=== PATIENT | male | born 1960 | race Caucasian/White ===

== ENCOUNTER 2016-12-28 19:11 | Inpatient (IN) | payer BC ==
[2016-12-28] MEDS ORDERED: HYDROmorphone 1 mg/ml ISec IVP STA (19:39)
--- NOTE | 2016-12-28 20:03 | ED PDOC ---
Arrival/HPI - General Chief Complaint: ENT Problem Time Seen by Provider: 12/28/16 19:22 Historian: Patient - History of Present Illness Narrative History of Present Illness (Text): 12/28/16 19:22 A 56 year old male who presents to the emergency department complaining of left lateral neck discomfort secondary to throat cancer. Patient states he was coughing up blood. He was recently admitted the [facility] [place] and treated for pneumonia. During his last admission the patient had a peg tube placed. Patient is currently on chronic pain medications. Patient last chemotherapy was 2 weeks ago and was originally diagnosed with cancer 2 years ago. Patient states he feels very weak but denies any history of known fever or chills. Patient denies any chest pain, shortness of breath or other complaints at this time. Time/Duration: Other Symptom Onset: Sudden Symptom Course: Unchanged Quality: Other Activities at Onset: Rest Context: Home Past Medical History - Provider Review Nursing Documentation Reviewed: Yes - Infectious Disease Hx of Infectious Diseases: None - Cardiac Hx Cardiac Disorders: No - Pulmonary Hx Respiratory Disorders: Yes Hx Pneumonia: Yes Other/Comment: hospitalized at [facility] [place] for pneumonia (december 2016) - Neurological Hx Neurological Disorder: No - HEENT Hx HEENT Disorder: No - Renal Hx Renal Disorder: No - Endocrine/Metabolic Hx Endocrine Disorders: No - Hematological/Oncological Hx Blood Disorders: Yes Hx Cancer: Yes (throat cancer) - Integumentary Hx Dermatological Disorder: No - Musculoskeletal/Rheumatological Hx Musculoskeletal Disorders: No - Gastrointestinal Hx Gastrointestinal Disorders: Yes Other/Comment: G tube - Genitourinary/Gynecological Hx Genitourinary Disorders: No - Psychiatric Hx Psychophysiologic Disorder: No Hx Substance Use: No - Surgical History Other/Comment: G tube placed. R chest port - Anesthesia Hx Anesthesia: Yes Hx Anesthesia Reactions: No Family/Social History - Physician Review Nursing Documentation Reviewed: Yes Family/Social History: Unknown Family HX Smoking Status: Former Smoker Hx Alcohol Use: No Hx Substance Use: No Allergies/Home Meds Allergies/Adverse Reactions: Allergies No Known Allergies Allergy (Verified 12/28/16 19:21) Home Medications: Home Meds Medication Instructions Recorded Confirmed oxyCODONE [oxyCODONE Immediate 20 mg PO PRN PRN 12/28/16 12/28/16 Release Tab] Review of Systems - Physician Review All systems were reviewed & negative as marked: Yes - Review of Systems Constitutional: Fatigue. absent: Fevers, Other (chills) Eyes: Normal ENT: Normal Respiratory: Other (Hemoptysis). absent: SOB Cardiovascular: absent: Chest Pain Gastrointestinal: absent: Abdominal Pain, Nausea, Vomiting Genitourinary Male: absent: Dysuria Musculoskeletal: Neck Pain. absent: Back Pain Skin: absent: Rash Neurological: absent: Headache, Dizziness Endocrine: Normal Hemo/Lymphatic: Normal Psychiatric: Normal Physical Exam Vital Signs Reviewed: Yes Vital Signs Temp Pulse Resp BP Pulse Ox 12/29/16 01:50 98.4 F 86 17 117/78 12/29/16 01:08 98.6 F 84 18 116/86 12/29/16 01:05 98.9 F 84 18 126/78 12/29/16 00:46 98.6 F 89 17 130/76 12/28/16 23:49 96 H 18 130/72 100 12/28/16 19:28 99 F 99 H 17 100/57 L 97 Temperature: Afebrile Blood Pressure: Hypotensive Pulse: Regular Respiratory Rate: Normal Appearance: Positive for: Well-Appearing, Non-Toxic, Comfortable Pain Distress: None Mental Status: Positive for: Alert and Oriented X 3 - Systems Exam Head: Present: Atraumatic, Normocephalic Pupils: Present: PERRL Extroacular Muscles: Present: EOMI Conjunctiva: Present: Normal Mouth: Present: Moist Mucous Membranes Pharnyx: Present: Other (soft tissue swelling to the lateral posterior pharyngeal wall). No: Strider Neck: Present: Normal Range of Motion, Other (significant swelling to the left lateral neck/throat region) Respiratory/Chest: Present: Clear to Auscultation, Good Air Exchange. No: Respiratory Distress, Accessory Muscle Use Cardiovascular: Present: Regular Rate and Rhythm, Normal S1, S2. No: Murmurs Abdomen: Present: Normal Bowel Sounds, Feeding Tubes. No: Tenderness, Distention, Peritoneal Signs Back: Present: Normal Inspection Upper Extremity: Present: Normal Inspection. No: Cyanosis, Edema Lower Extremity: Present: Normal Inspection. No: Edema Neurological: Present: GCS=15, CN II-XII Intact, Speech Normal, Other (no neurological deficits) Skin: Present: Warm, Dry, Normal Color. No: Rashes Psychiatric: Present: Alert, Oriented x 3, Normal Insight, Normal Concentration Medical Decision Making ED Course and Treatment: 12/28/16 19:22 Impression: A 56 year old male with left lateral neck swelling. Differential Diagnosis include but are not limited to: metastasis of throat cancer Plan: -- EKG -- Chest X-ray -- Labs -- Urinalysis -- Dilaudid, Zofran and IV Fluids -- Reassess and disposition Progress Notes: EKG shows NSR at 88 BPM with T wave changes inferiorly, with no prior for comparison. Interpreted by me. 12/28/16 20:42 Chest X-ray Impression: As read by me, no acute process. 12/28/16 23:23 Reviewed radiology, CT Neck shows: Vascular destructive mass representing (likely) patient's known head and neck cancer measuring approximately 9.2 cm in greatest dimension. Thecal sac and intracranial extension along with significant bony destruction are identified, and detailed above. Mass effect on the nasopharyngeal and oropharyngeal airway. CT Chest shows: No discrete metastatic disease is detected within the chest. Moderate interstitial thickening with trace left basilar consolidation. 12/28/16 23:[address] Barrera, covering for Dr. Galindo, who is aware and agrees with plan. Pt will be admitted to telemetry for neck mass and anemia. Requests Dr. Santa and Dr. Gaines on consult. 12/28/16 23:38 ENT paged. Case discussed with medical editor claim professional, who is aware and agrees with plan. 12/28/16 23:[address] Gutierrez ENT.Results of pts. CT scan discussed in full.Pt. w/o any signs of respiratory difficulty. States they will see pt on consult. - Lab Interpretations Lab Results: 12/28/16 20:00 12/28/16 20:00 Lab Results 12/28/16 21:40: Blood Type Confirm O POSITIVE 12/28/16 21:00: Blood Type O POSITIVE, Antibody Screen Negative, Crossmatch See Detail, BBK History Checked No verified bt 12/28/16 20:36: Urine Color Yellow, Urine Appearance Clear, Urine pH 8.0, Ur Specific Benedict 1.015, Urine Protein Negative, Urine Glucose (UA) Negative, Urine Ketones Negative, Urine Blood Negative, Urine Nitrate Negative, Urine Bilirubin Negative, Urine Urobilinogen 4.0 H, Ur Leukocyte Esterase Negative 12/28/16 20:00: Iron 15 L, TIBC 171 L, % Saturation 9 L 12/28/16 20:00: Retic Count 1.58 H 12/28/16 20:00: Serum Osmolality 266 L 12/28/16 20:00: Sodium 125 L, Chloride 84 L, Potassium 4.2, Carbon Dioxide 36 H , Anion Gap 9 L, BUN 16, Creatinine 0.7, Est GFR ( Amer) > 60, Est GFR ( Non-Af Amer) > 60, Random Glucose 86, Calcium 8.9, Phosphorus 3.4, Magnesium 1.6 L, Total Bilirubin 0.3, AST 41, ALT 34, Alkaline Phosphatase 65, Total Protein 6.8, Albumin 3.2, Globulin 3.6, Albumin/Globulin Ratio 0.9 L 12/28/16 20:00: pO2 34, VBG pH 7.38, VBG pCO2 66.0 H*, VBG HCO3 39.0 H, VBG Total CO2 41.0 H, VBG O2 Sat (Calc) 68.5 H, VBG Base Excess 11.1 H, VBG Potassium 4.3, Sodium 126.0 L, Chloride 89.0 L, Glucose 91, Lactate 0.9, FiO2 21.0, Venous Blood Potassium 4.3 12/28/16 20:00: PT 12.0 H, INR 1.11 H, APTT 26.7 12/28/16 20:00: WBC 7.2, RBC 2.15 L, Hgb 6.8 L*, Hct 20.2 L*, MCV 94.0, MCH 31.6 , MCHC 33.7, RDW 14.2, Plt Count 422, MPV 8.4, Gran % 75.5 H, Lymph % (Auto) 14.6 L, [place] % (Auto) 9.5 H, Eos % (Auto) 0.1 L, Baso % (Auto) 0.3, Gran # 5.42 , Lymph # 1.1 L, [place] # 0.7 H, Eos # 0.0, Baso # 0.02 I have reviewed the lab results: Yes - RAD Interpretation Narrative RAD Interpretations (Text): CT Neck shows: A vascular destructive mass is identified within the head and neck. Approximate measurements are 9.2 x 7.8 x 8.1 cm (anterior to posterior x medial to lateral x cranial to caudal dimension). This mass demonstrates bony destruction of the sphenoid sinus and clivus extending to and including the posterior left lateral skull base. Extension into the thecal sac is also detected, at the level of C1- C3. This mass also erodes the left maxilla with lateral distention and attenuation of the internal carotid artery as well as the external carotid artery and its branches within the left lateral neck. Intracranial extension is suspected within the posterior fossa, to the left of midline. The globes are intact and symmetric. Significant narrowing of the nasopharyngeal, oropharyngeal and laryngeal airways. Extensive cervical and supraclavicular lymph nodes are identified. Poor delineation secondary to the lack of subcutaneous fat. IMPRESSION: Vascular destructive mass representing (likely) patient's known head and neck cancer measuring approximately 9.2 cm in greatest dimension. Thecal sac and intracranial extension along with significant bony destruction are identified, and detailed above. Mass effect on the nasopharyngeal and oropharyngeal airway. CT Chest shows: Lungs: Moderate interstitial thickening, with trace left basilar consolidation. Pleural space: No pneumothorax. No significant effusion. Heart: No cardiomegaly. No significant pericardial effusion. Bones/joints: No acute fracture. No dislocation. Soft tissues: Absence of subcutaneous fat. Vasculature: Calcified atherosclerotic disease. Lymph nodes: Limited detection of mediastinal lymph nodes secondary to the lack of fat within the soft tissues. IMPRESSION: No discrete metastatic disease is detected within the chest. Moderate interstitial thickening with trace left basilar consolidation. Radiology Orders: 12/28/16 19:37 CHEST PORTABLE [RAD] Stat 12/28/16 20:47 NECK,CHEST WITH CONTRAST [CT] Stat Tube Filler: Radiologist - EKG Interpretation Interpreted by ED Physician: Yes Type: 12 lead EKG - Medication Orders Current Medication Orders: Acetaminophen (Tylenol 325mg Tab) 650 mg PO Q4H PRN PRN Reason: Fever >100.4 F Sodium Chloride (Sodium Chloride 0.9%) 1,000 mls @ 100 mls/hr IV .Q10H JOSELYN Stop: 12/29/16 20:29 Last Admin: 12/29/16 01:09 Dose: 100 mls/hr Morphine Sulfate (Morphine) 2 mg IVP Q4H PRN PRN Reason: Pain, severe (8-10) Pantoprazole Sodium (Protonix Inj) 40 mg IVP DAILY JOSELYN Discontinued Medications Hydromorphone HCl (Dilaudid) 1 mg IVP STAT STA Stop: 12/28/16 19:40 Last Admin: 12/28/16 20:13 Dose: 1 mg Sodium Chloride 1,500 ml/ IV (SUPPLIES) 1,500 mls @ 2,993.7 mls/hr IV ONCE ONE PRN Reason: 60 ML/KG/HR Stop: 12/28/16 19:38 Last Admin: 12/28/16 20:13 Dose: 2,993.7 mls/hr Magnesium Sulfate 2 gm/ Sodium (Chloride) 104 mls @ 102 mls/hr IVPB ONCE ONE Stop: 12/29/16 00:51 Last Admin: 12/29/16 00:12 Dose: 102 mls/hr Iohexol (Omnipaque 350 100 Ml) Confirm Administered Dose 350 mg .ROUTE .STK-MED ONE Stop: 12/28/16 21:13 Ondansetron HCl (Zofran Inj) 4 mg IVP ONCE ONE Stop: 12/28/16 19:40 Last Admin: 12/28/16 20:13 Dose: 4 mg - Scribe Statement The provider has reviewed the documentation as recorded by the Rosemary Daniel Provider Scribe Attestation: All medical record entries made by the Rosemary were at my direction and personally dictated by me. I have reviewed the chart and agree that the record accurately reflects my personal performance of the history, physical exam, medical decision making, and the department course for this patient. I have also personally directed, reviewed, and agree with the discharge instructions and disposition. Disposition/Present on Arrival - Present on Arrival Any Indicators Present on Arrival: No History of DVT/PE: No History of Uncontrolled Diabetes: No Urinary Catheter: No History of Decub. Ulcer: No History Surgical Site Infection Following: None - Disposition Have Diagnosis and Disposition been Completed?: Yes Diagnosis: Neck malignant neoplasm, Anemia Disposition: HOSPITALIZED Disposition Time: 00:04 Patient Plan: Admission Patient Problems: Current Active Problems Problem Status Onset Anemia Acute Neck malignant neoplasm Acute Condition: STABLE
[2016-12-28 20:10] LABS: BASO # 0.02 K/mm3 (0.0-2.0); BASO % 0.3 % (0.0-3.0); EOS % 0.1 % (1.5-5.0); GRAN # 5.42 (1.4-6.5); GRAN % 75.5 % (50.0-68.0); LYMPH # 1.1 (1.2-3.4); LYMPH % 14.6 % (22.0-35.0); MEAN CORPUSCULAR HEMOGLOBIN 31.6 pg (25.0-35.0); MEAN CORPUSCULAR HGB CONC 33.7 g/dl (31.0-37.0); MEAN PLATELET VOLUME 8.4 fl (7.0-11.0); MONO # 0.7 (0.1-0.6); MONO % 9.5 % (1.0-6.0); PLATELET COUNT 422 10^3/uL (120.0-450.0); RBC 2.15 10^6/uL (3.5-6.1); RED CELL DISTRIBUTION WIDTH 14.2 % (11.5-14.5); WHITE BLOOD COUNT 7.2 10^3/ul (4.5-11.0)
[2016-12-28 20:14] LABS: VENOUS BLOOD GAS BASE EXCESS 11.1 mmol/L (0.0-2.0); VENOUS BLOOD GAS PO2 34 mm/Hg (30-55); VENOUS BLOOD PH 7.38 (7.32-7.43)
[2016-12-28 20:16] LABS: HEMOGLOBIN 6.8 gm/dL (14.0-18.0)
[2016-12-28 20:21] LABS: ALB/GLOB RATIO 0.9 (1.1-1.8); ALBUMIN 3.2 g/dL (3.0-4.8); ALT/SGPT 34 U/L (7-56); AST/SGOT 41 U/L (15-59); BLOOD UREA NITROGEN 16 mg/dL (7-21); CALCIUM 8.9 mg/dL (8.4-10.5); GFR AFRICAN-AMERICAN > 60; GFR NON-AFRICAN AMERICAN > 60; MAGNESIUM 1.6 mg/dL (1.7-2.2)
[2016-12-28 20:22] LABS: INR 1.11 (0.93-1.08); PARTIAL THROMBOPLASTIN TIME 26.7 Seconds (23.7-30.8)
[2016-12-28 20:52] LABS: URINE BILIRUBIN NEGATIVE (NEGATIVE); URINE BLOOD NEGATIVE (NEGATIVE); URINE GLUCOSE (UA) NEGATIVE (NEGATIVE); URINE LEUKOCYTE ESTERASE NEGATIVE Leu/uL (NEGATIVE); URINE NITRATE NEGATIVE (NEGATIVE); URINE PROTEIN NEGATIVE mg/dL (<30 mg/dL)
[2016-12-28 21:03] LABS: URINE APPEARANCE CLEAR (CLEAR); URINE COLOR YELLOW (YELLOW)
[2016-12-28] MEDS ORDERED: Iohexol 350 MG/100 ML VIAL ONE (21:12)
--- NOTE | 2016-12-28 23:17 | CT ---
EXAM: CT Neck With Intravenous Contrast CLINICAL HISTORY: 56 years old, male; Pain; Chest pain; Type not specified; Neck pain and painful swallowing and throat pain; Additional info: Left neck/throat pain/hx. Throat cancer TECHNIQUE: Axial computed tomography images of the neck with intravenous contrast. This CT exam was performed using one or more of the following dose reduction techniques: automated exposure control, adjustment of the mA and/or kV according to patient size, and/or use of iterative reconstruction technique. Coronal and sagittal reformatted images were created and reviewed. CONTRAST: 100 mL of omni 350 administered intravenously. COMPARISON: No relevant prior studies available. Reference is made to a report from a PET CT performed 02/25/2015 FINDINGS: A vascular destructive mass is identified within the head and neck. Approximate measurements are 9.2 x 7.8 x 8.1 cm (anterior to posterior x medial to lateral x cranial to caudal dimension). This mass demonstrates bony destruction of the sphenoid sinus and clivus extending to and including the posterior left lateral skull base. Extension into the thecal sac is also detected, at the level of C1-C3. This mass also erodes the left maxilla with lateral distention and attenuation of the internal carotid artery as well as the external carotid artery and its branches within the left lateral neck. Intracranial extension is suspected within the posterior fossa, to the left of midline. The globes are intact and symmetric. Significant narrowing of the nasopharyngeal, oropharyngeal and laryngeal airways. Extensive cervical and supraclavicular lymph nodes are identified. Poor delineation secondary to the lack of subcutaneous fat. IMPRESSION: Vascular destructive mass representing (likely) patient's known head and neck cancer measuring approximately 9.2 cm in greatest dimension. Thecal sac and intracranial extension along with significant bony destruction are identified, and detailed above. Mass effect on the nasopharyngeal and oropharyngeal airway. EXAM: CT Chest With Intravenous Contrast CLINICAL HISTORY: 56 years old, male; Pain; Chest pain; Type not specified; Neck pain and painful swallowing and throat pain; Additional info: Left neck/throat pain/hx. Throat cancer TECHNIQUE: Axial computed tomography images of the chest with intravenous contrast. This CT exam was performed using one or more of the following dose reduction techniques: automated exposure control, adjustment of the mA and/or kV according to patient size, and/or use of iterative reconstruction technique. Coronal and sagittal reformatted images were created and reviewed. CONTRAST: 100 mL of omni 350 administered intravenously. COMPARISON: DX - CHEST PORTABLE 12/28/2016 8:02:26 PM FINDINGS: Lungs: Moderate interstitial thickening, with trace left basilar consolidation. Pleural space: No pneumothorax. No significant effusion. Heart: No cardiomegaly. No significant pericardial effusion. Bones/joints: No acute fracture. No dislocation. Soft tissues: Absence of subcutaneous fat. Vasculature: Calcified atherosclerotic disease. Lymph nodes: Limited detection of mediastinal lymph nodes secondary to the lack of fat within the soft tissues. IMPRESSION: No discrete metastatic disease is detected within the chest. Moderate interstitial thickening with trace left basilar consolidation.
[2016-12-28] MEDS ORDERED: Magnesium Sulfate 2 GM in Sodium Chloride 0.9% 100 ML IVPB ONE (23:50)
--- NOTE | 2016-12-29 00:38 | CP.PCM.HP ---
History of Present Illness - History of Present Illness History of Present Illness: HPI: Patient is a 56yo male with past medical history of oropharyngeal Ca that presents c/o neck pain. Patient is a poor historian however he was able to communicate that he has a known history of throat cancer for which he was being treated at [facility] [place]. He reported that he was recently discharged from [facility] [place] for pneumonia and since discharge has been experiencing left lateral neck pain associated with hemoptysis. He stated that he was diagnosed with cancer 2 years prior and had been undergoing chemotherapy (last session 2 weeks ago). Denied chest pain, palpitations, SOB, abdominal pain, nausea, vomiting, fever, chills. 12 point ROS as per HPI above, otherwise negative PMHx: Oropharyngeal ca diagnosed 2 yrs prior PSHx: PEG tube placement at [facility] [place] (1 week prior); chemoport Allergies: NKDA Medications: Unable to provide Family Hx: denies family history of cancer Social Hx: Reports former tobacco and alcohol use however unable to quantify amount or how long ago; denies illicit drugs Present on Admission - Present on Admission Any Indicators Present on Admission: No Past Patient History - Infectious Disease Hx of Infectious Diseases: None - Past Social History Smoking Status: Former Smoker - CARDIAC Hx Cardiac Disorders: No - PULMONARY Hx Respiratory Disorders: Yes Hx Pneumonia: Yes Other/Comment: hospitalized at [facility] [place] for pneumonia (december 2016) - NEUROLOGICAL Hx Neurological Disorder: No - HEENT Hx HEENT Problems: No - RENAL Hx Chronic Kidney Disease: No - ENDOCRINE/METABOLIC Hx Endocrine Disorders: No - HEMATOLOGICAL/ONCOLOGICAL Hx Blood Disorders: Yes Hx Cancer: Yes (throat cancer) - INTEGUMENTARY Hx Dermatological Problems: No - MUSCULOSKELETAL/RHEUMATOLOGICAL Hx Musculoskeletal Disorders: No - GASTROINTESTINAL Hx Gastrointestinal Disorders: Yes Other/Comment: G tube - GENITOURINARY/GYNECOLOGICAL Hx Genitourinary Disorders: No - PSYCHIATRIC Hx Psychophysiologic Disorder: No Hx Substance Use: No - SURGICAL HISTORY Other/Comment: G tube placed. R chest port - ANESTHESIA Hx Anesthesia: Yes Hx Anesthesia Reactions: No Meds Allergies/Adverse Reactions: Allergies Allergy/AdvReac Type Severity Reaction Status Date / Time No Known Allergies Allergy Verified 12/28/16 19:21 Physical Exam - Constitutional Appears: Cachectic, Chronically Ill - Head Exam Head Exam: ATRAUMATIC, NORMOCEPHALIC - Eye Exam Eye Exam: EOMI, PERRL - Respiratory Exam Respiratory Exam: Clear to Auscultation Bilateral. absent: Rales, Rhonchi, Wheezes - Cardiovascular Exam Cardiovascular Exam: RRR, +S1, +S2. absent: Gallop, Rubs - GI/Abdominal Exam GI & Abdominal Exam: Soft. absent: Distended, Firm, Guarding, Tenderness Additional comments: peg tube in place; site appears clean/dry/intact - Extremities Exam Extremities exam: Negative for: calf tenderness, pedal edema, tenderness - Neurological Exam Neurological exam: Alert, Oriented x3 - Psychiatric Exam Psychiatric exam: Normal Affect, Normal Mood - Skin Skin Exam: Dry, Intact, Normal Color, Warm Results - Vital Signs Recent Vital Signs: Last Vital Signs Temp 99 F 12/28/16 19:28 Pulse 96 H 12/28/16 23:49 Resp 18 12/28/16 23:49 BP 130/72 12/28/16 23:49 Pulse Ox 100 12/28/16 23:49 - Labs Result Diagrams: 12/28/16 20:00 12/28/16 20:00 Labs: Laboratory Results - last 24 hr 12/28/16 12/28/16 12/28/16 20:00 20:00 20:00 WBC 7.2 RBC 2.15 L Hgb 6.8 L* Hct 20.2 L* MCV 94.0 MCH 31.6 MCHC 33.7 RDW 14.2 Plt Count 422 MPV 8.4 Gran % 75.5 H Lymph % (Auto) 14.6 L Hall % (Auto) 9.5 H Eos % (Auto) 0.1 L Baso % (Auto) 0.3 Gran # 5.42 Lymph # 1.1 L Hall # 0.7 H Eos # 0.0 Baso # 0.02 PT 12.0 H INR 1.11 H APTT 26.7 pO2 34 VBG pH 7.38 VBG pCO2 66.0 H* VBG HCO3 39.0 H VBG Total CO2 41.0 H VBG O2 Sat (Calc) 68.5 H VBG Base Excess 11.1 H VBG Potassium 4.3 Sodium 126.0 L Chloride 89.0 L Glucose 91 Lactate 0.9 FiO2 21.0 Potassium Carbon Dioxide Anion Gap BUN Creatinine Est GFR ( Amer) Est GFR (Non-Af Amer) Random Glucose Calcium Phosphorus Magnesium Total Bilirubin AST ALT Alkaline Phosphatase Total Protein Albumin Globulin Albumin/Globulin Ratio Venous Blood Potassium 4.3 Urine Color Urine Appearance Urine pH Ur Specific [place] Urine Protein Urine Glucose (UA) Urine Ketones Urine Blood Urine Nitrate Urine Bilirubin Urine Urobilinogen Ur Leukocyte Esterase Blood Type Blood Type Confirm Antibody Screen Crossmatch BBK History Checked 12/28/16 12/28/16 12/28/16 20:00 20:36 21:00 WBC RBC Hgb Hct MCV MCH MCHC RDW Plt Count MPV Gran % Lymph % (Auto) Hall % (Auto) Eos % (Auto) Baso % (Auto) Gran # Lymph # Hall # Eos # Baso # PT INR APTT pO2 VBG pH VBG pCO2 VBG HCO3 VBG Total CO2 VBG O2 Sat (Calc) VBG Base Excess VBG Potassium Sodium 125 L Chloride 84 L Glucose Lactate FiO2 Potassium 4.2 Carbon Dioxide 36 H Anion Gap 9 L BUN 16 Creatinine 0.7 Est GFR ( Amer) > 60 Est GFR (Non-Af Amer) > 60 Random Glucose 86 Calcium 8.9 Phosphorus 3.4 Magnesium 1.6 L Total Bilirubin 0.3 AST 41 ALT 34 Alkaline Phosphatase 65 Total Protein 6.8 Albumin 3.2 Globulin 3.6 Albumin/Globulin Ratio 0.9 L Venous Blood Potassium Urine Color Yellow Urine Appearance Clear Urine pH 8.0 Ur Specific [place] 1.015 Urine Protein Negative Urine Glucose (UA) Negative Urine Ketones Negative Urine Blood Negative Urine Nitrate Negative Urine Bilirubin Negative Urine Urobilinogen 4.0 H Ur Leukocyte Esterase Negative Blood Type O POSITIVE Blood Type Confirm Antibody Screen Negative Crossmatch See Detail BBK History Checked No verified bt 12/28/16 21:40 WBC RBC Hgb Hct MCV MCH MCHC RDW Plt Count MPV Gran % Lymph % (Auto) Hall % (Auto) Eos % (Auto) Baso % (Auto) Gran # Lymph # Hall # Eos # Baso # PT INR APTT pO2 VBG pH VBG pCO2 VBG HCO3 VBG Total CO2 VBG O2 Sat (Calc) VBG Base Excess VBG Potassium Sodium Chloride Glucose Lactate FiO2 Potassium Carbon Dioxide Anion Gap BUN Creatinine Est GFR ( Amer) Est GFR (Non-Af Amer) Random Glucose Calcium Phosphorus Magnesium Total Bilirubin AST ALT Alkaline Phosphatase Total Protein Albumin Globulin Albumin/Globulin Ratio Venous Blood Potassium Urine Color Urine Appearance Urine pH Ur Specific [place] Urine Protein Urine Glucose (UA) Urine Ketones Urine Blood Urine Nitrate Urine Bilirubin Urine Urobilinogen Ur Leukocyte Esterase Blood Type Blood Type Confirm O POSITIVE Antibody Screen Crossmatch BBK History Checked Assessment & Plan - Assessment and Plan (Free Text) Plan: 56yo male with history of oropharyngeal ca presents c/o left lateral neck pain associated with hemoptysis 1. Throat Ca -CT Neck/Chest reviewed; revealed vascular destructive mass representing patients known head and neck cancer measuring approximately 9.2cm in greatest dimension. Thecal sac and intracranial extension along with significant bony destruction are identified; mass effect on the nasopharyngeal and oropharyngeal airway; no discrete metastatic disease is detected within the chest; see full report -PET scan from 02/19/15 reviewed; revealed FDG avid lesion extending from the posterior tongue into the left vallecula, likely represented primary malignancy ; solitary rounded FDG-avid lesion along the left posterior lateral oropharynx likely representing an enlarged retropharyngeal lymph node; no evidence of metastatic disease in the chest, abdomen or pelvis; see full report -EKG reviewed; NSR, normal axis, T wave inversions in inferior leads; no prior for comparison -CXR reviewed; no apparent active disease, however official read pending -ENT consulted - Dr. Gaines -Heme/Onc consulted - Dr. Santa 2. Acute anemia -Hgb 6.8 on presentation, consent obtained for blood transfusion -Ordered 2u pRBC to be administered -Anemia workup: Iron, Ferritin, TIBC, reticulocyte count, B12, folate -Heme/onc consulted - Dr. Santa 3. Hypomagnesemia -Monitor and replete electrolytes as indicated 4. GI/DVT prophylaxis -protonix/SCD's Case discussed with attending, Dr. Barrera - Date & Time Date: 12/29/16 Time: 00:40
[2016-12-29] MEDS: Sodium Chloride 0.9% 1,000 ML IV SCH ×2 (01:09→19:09)
[2016-12-29 01:46] LABS: % IRON SATURATION 9 % (20-55); IRON 15 ug/dL (45-180); TOTAL IRON BINDING CAPACITY 171 ug/dL (261-462)
[2016-12-29 02:04] LABS: CREATININE,RANDOM URINE 28 mg/dL
[2016-12-29 02:29] LABS: OSMOLALITY,URINE 294 mosm/kg (50-645)
[2016-12-29] MEDS: Morphine 2 mg/ml ISec IVP PRN ×4 (02:43→23:24)
[2016-12-29 03:43] VITALS: BMI 17.3
--- NOTE | 2016-12-29 07:54 | RAD ---
HISTORY: Sepsis Patient COMPARISON: No prior. FINDINGS: LUNGS: No active pulmonary disease. PLEURA: No significant pleural effusion identified, no pneumothorax apparent. CARDIOVASCULAR: Normal. OSSEOUS STRUCTURES: No significant abnormalities. VISUALIZED UPPER ABDOMEN: Normal. OTHER FINDINGS: Right subclavian central line tip inserted tip in superior vena cava. No pneumothorax noted IMPRESSION: Central line as above. No pneumothorax. No consolidation/infiltrate
[2016-12-29 08:05] LABS: BASO # 0.03 K/mm3 (0.0-2.0); BASO % 0.3 % (0.0-3.0); EOS % 0.2 % (1.5-5.0); GRAN # 9.12 (1.4-6.5); GRAN % 82.6 % (50.0-68.0); HEMOGLOBIN 11.6 gm/dL (14.0-18.0); LYMPH # 0.9 (1.2-3.4); LYMPH % 7.8 % (22.0-35.0); MEAN CELL VOLUME 91.4 fL (80.0-105.0); MEAN CORPUSCULAR HEMOGLOBIN 32.1 pg (25.0-35.0); MEAN CORPUSCULAR HGB CONC 35.2 g/dl (31.0-37.0); MEAN PLATELET VOLUME 8.7 fl (7.0-11.0); MONO % 9.1 % (1.0-6.0); PLATELET COUNT 412 10^3/uL (120.0-450.0); RBC 3.61 10^6/uL (3.5-6.1); RED CELL DISTRIBUTION WIDTH 15.2 % (11.5-14.5)
[2016-12-29 08:18] LABS: ALB/GLOB RATIO 0.9 (1.1-1.8); ALBUMIN 3.7 g/dL (3.0-4.8); ALT/SGPT 33 U/L (7-56); AST/SGOT 34 U/L (15-59); BLOOD UREA NITROGEN 11 mg/dL (7-21); CALCIUM 9.6 mg/dL (8.4-10.5); GFR AFRICAN-AMERICAN > 60; GFR NON-AFRICAN AMERICAN > 60
--- NOTE | 2016-12-29 08:53 | CARD ---
APPROVED REPORT EKG Measurement Heart [id number] <Conclusion> Normal sinus rhythm T wave abnormality, consider inferior ischemia Abnormal ECG
[2016-12-29 12:48] LABS: FOLATE > 20.0 ng/mL
[2016-12-30] MEDS: Morphine 2 mg/ml ISec IVP PRN ×5 (03:54→23:06)
[2016-12-30 06:49] LABS: ALB/GLOB RATIO 0.9 (1.1-1.8); ALBUMIN 3.4 g/dL (3.0-4.8); ALT/SGPT 32 U/L (7-56); AST/SGOT 30 U/L (15-59); BLOOD UREA NITROGEN 10 mg/dL (7-21); CALCIUM 9.3 mg/dL (8.4-10.5); GFR AFRICAN-AMERICAN > 60; GFR NON-AFRICAN AMERICAN > 60
[2016-12-30 06:56] LABS: BASO # 0.02 K/mm3 (0.0-2.0); BASO % 0.2 % (0.0-3.0); EOS % 0.1 % (1.5-5.0); GRAN # 9.59 (1.4-6.5); GRAN % 82.6 % (50.0-68.0); HEMOGLOBIN 10.2 gm/dL (14.0-18.0); LYMPH # 1.1 (1.2-3.4); LYMPH % 9.1 % (22.0-35.0); MEAN CELL VOLUME 89.9 fL (80.0-105.0); MEAN CORPUSCULAR HEMOGLOBIN 31.3 pg (25.0-35.0); MEAN CORPUSCULAR HGB CONC 34.8 g/dl (31.0-37.0); MEAN PLATELET VOLUME 9.2 fl (7.0-11.0); MONO # 0.9 (0.1-0.6); PLATELET COUNT 419 10^3/uL (120.0-450.0); RBC 3.26 10^6/uL (3.5-6.1); RED CELL DISTRIBUTION WIDTH 14.7 % (11.5-14.5); WHITE BLOOD COUNT 11.6 10^3/ul (4.5-11.0)
[2016-12-30 08:22] LABS: MAGNESIUM 1.5 mg/dL (1.7-2.2)
--- NOTE | 2016-12-30 11:25 | CP.PCM.CON ---
History of Present Illness - History of Present Illness History of Present Illness: Palliative consult requested by Dr Antoinette Galindo Reason : Goals of care 56 year old male with history of cancer who presented with left sided neck pain. Patient also reports coughing up blood. He was anemic, hyponatremic. PMHx: pneumonia, throat cancer s/p radiation, last chemotherapy 2 weeks ago, PEG placed one week ago Social History: Former smoker, occasional alcohol in the past, no drug use. Single, lives independently Family History: Non contributory. Advance Care Planning: The patient does not have an Advance Directive. Review of Systems - Constitutional Constitutional: Fatigue, Weight Loss - EENT Eyes: Dry Eye Nose/Mouth/Throat: Dry Mouth, Sore Throat - Cardiovascular Additional comments: negative - Respiratory Additional comments: negative - Gastrointestinal Gastrointestinal: Early Satiety - Genitourinary Additional comments: negative - Musculoskeletal Musculoskeletal: Muscle Weakness - Neurological Additional comments: negative - Endocrine Additional Comments: negative Past Patient History - Infectious Disease Hx of Infectious Diseases: None - Past Social History Smoking Status: Former Smoker - CARDIAC Hx Cardiac Disorders: No - PULMONARY Hx Respiratory Disorders: Yes Hx Pneumonia: Yes Other/Comment: hospitalized at [facility] [place] (de[place] 2016) - NEUROLOGICAL Hx Neurological Disorder: No - HEENT Hx HEENT Problems: No - RENAL Hx Chronic Kidney Disease: No - ENDOCRINE/METABOLIC Hx Endocrine Disorders: No - HEMATOLOGICAL/ONCOLOGICAL Hx Blood Disorders: Yes Hx Cancer: Yes (throat cancer) - INTEGUMENTARY Hx Dermatological Problems: No - MUSCULOSKELETAL/RHEUMATOLOGICAL Hx Musculoskeletal Disorders: No - GASTROINTESTINAL Hx Gastrointestinal Disorders: Yes Other/Comment: G tube - GENITOURINARY/GYNECOLOGICAL Hx Genitourinary Disorders: No - PSYCHIATRIC Hx Psychophysiologic Disorder: No Hx Substance Use: No - SURGICAL HISTORY Other/Comment: G tube placed. R chest port - ANESTHESIA Hx Anesthesia: Yes Hx Anesthesia Reactions: No Meds Allergies/Adverse Reactions: Allergies Allergy/AdvReac Type Severity Reaction Status Date / Time No Known Allergies Allergy Verified 12/28/16 19:21 - Medications Medications: Current Medications Acetaminophen (Tylenol 325mg Tab) 650 mg PO Q4H PRN PRN Reason: Fever >100.4 F Morphine Sulfate (Morphine) 2 mg IVP Q4H PRN PRN Reason: Pain, severe (8-10) Last Admin: 12/30/16 10:32 Dose: 2 mg Pantoprazole Sodium (Protonix Inj) 40 mg IVP DAILY JOSELYN Last Admin: 12/30/16 10:32 Dose: 40 mg Results - Vital Signs Recent Vital Signs: Last Vital Signs Temp 99 F 12/30/16 06:00 Pulse 84 12/30/16 06:00 Resp 18 12/30/16 06:00 BP 162/99 H 12/30/16 06:00 Pulse Ox 98 12/30/16 06:00 - Labs Result Diagrams: 12/31/16 07:00 12/31/16 07:00 Labs: Laboratory Results - last 24 hr 12/29/16 12/30/16 12/30/16 01:20 05:30 05:30 WBC RBC Hgb Hct MCV MCH MCHC RDW Plt Count MPV Gran % Lymph % (Auto) [place] % (Auto) Eos % (Auto) Baso % (Auto) Gran # Lymph # [place] # Eos # Baso # Sodium 123 L Potassium 4.4 Chloride 85 L Carbon Dioxide 31 Anion Gap 11 BUN 10 Creatinine 0.5 Est GFR ( Amer) > 60 Est GFR (Non-Af Amer) > 60 Random Glucose 92 Calcium 9.3 Phosphorus 3.7 Magnesium 1.5 L Total Bilirubin 0.9 AST 30 ALT 32 Alkaline Phosphatase 71 Total Protein 7.4 Albumin 3.4 Globulin 4.0 Albumin/Globulin Ratio 0.9 L Urine Chloride 67 12/30/16 05:36 WBC 11.6 H RBC 3.26 L Hgb 10.2 L Hct 29.3 L MCV 89.9 MCH 31.3 MCHC 34.8 RDW 14.7 H Plt Count 419 MPV 9.2 Gran % 82.6 H Lymph % (Auto) 9.1 L [place] % (Auto) 8.0 H Eos % (Auto) 0.1 L Baso % (Auto) 0.2 Gran # 9.59 H Lymph # 1.1 L [place] # 0.9 H Eos # 0.0 Baso # 0.02 Sodium Potassium Chloride Carbon Dioxide Anion Gap BUN Creatinine Est GFR ( Amer) Est GFR (Non-Af Amer) Random Glucose Calcium Phosphorus Magnesium Total Bilirubin AST ALT Alkaline Phosphatase Total Protein Albumin Globulin Albumin/Globulin Ratio Urine Chloride Assessment & Plan - Assessment and Plan (Free Text) Assessment: 56 year old male with history of throat cancer. He is admitted with acute anemia,hyponatremia, neck pain secondary to metastatic disease Patient is lethargic,he has difficulty speaking due to dry mouth. He understands that he has advanced throat cancer. He is not sure how he feels about continuing treatment if it is offered to him in the future. He does not have an advance directive. When asked if he wants CPR/intubation he states he doesn't think so. Ramifications of aggressive resuscitation explained. He states that he wants to talk to his sister Loli before making this decision. He asked that I speak with her as well, which I did via phone. Loli understands the importance of advance care planning at this time. She plans on visiting her brother later today to discuss code status and future goals of care. Time spent in discussion with patient and family regarding advance care planning , 30 minutes - Date & Time Date: 12/30/16 Time: 13:00
--- NOTE | 2016-12-30 16:23 | CP.PCM.PN ---
<Vinh Jackman - Last Filed: 12/30/16 16:53> Subjective - Date & Time of Evaluation Date of Evaluation: 12/30/16 Time of Evaluation: 07:10 - Subjective Subjective: Internal Medicine Progress Dr. Galindo/Dr. Rob service Patient seen and examined at bedside. Today is hospital day 2. 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 Pending eval from Palliative consult, consulted at behest of patient's Assurance Services Manager Health Care-Oncologist (Dr. Daniel). Patient denies chest pain, shortness of breath, room spinning sensation, or new hemoptysis. Lethargic throughout interview and exam, but able to answer all questions appropriately. Objective - Vital Signs/Intake and Output Vital Signs (last 24 hours): Temp Pulse Resp BP Pulse Ox 98.5 F 87 19 139/88 98 12/30/16 12:00 12/30/16 12:00 12/30/16 12:00 12/30/16 12:00 12/30/16 06:00 Intake and Output: 12/30/16 12/30/16 06:59 18:59 Intake Total 3555 Output Total 400 Balance 3155 - Medications Medications: Current Medications Acetaminophen (Tylenol 325mg Tab) 650 mg PO Q4H PRN PRN Reason: Fever >100.4 F Morphine Sulfate (Morphine) 2 mg IVP Q4H PRN PRN Reason: Pain, severe (8-10) Last Admin: 12/30/16 14:41 Dose: 2 mg Pantoprazole Sodium (Protonix Inj) 40 mg IVP DAILY JOSELYN Last Admin: 12/30/16 10:32 Dose: 40 mg - Labs Labs: 12/30/16 05:36 12/30/16 05:30 PT 12.0 Seconds (9.9-11.8) H 12/28/16 20:00 INR 1.11 (0.93-1.08) H 12/28/16 20:00 APTT 26.7 Seconds (23.7-30.8) 12/28/16 20:00 - Constitutional Appears: Non-toxic, No Acute Distress, Cachectic, Chronically Ill, Other ( Lethargic) - Head Exam Head Exam: ATRAUMATIC, NORMAL INSPECTION, NORMOCEPHALIC - Eye Exam Eye Exam: EOMI, Normal appearance. absent: Conjunctival injection, Scleral icterus Pupil Exam: absent: Irregular, Unequal - ENT Exam ENT Exam: Mucous Membranes Moist Additional comments: muffled voice - Neck Exam Neck Exam: Lymphadenopathy. absent: Tenderness - Respiratory Exam Respiratory Exam: Clear to Ausculation Bilateral, NORMAL BREATHING PATTERN. absent: Rales, Rhonchi, Wheezes - Cardiovascular Exam Cardiovascular Exam: REGULAR RHYTHM, RRR, +S1, +S2. absent: Bradycardia, Tachycardia, Irregular Rhythm, +S4 - GI/Abdominal Exam GI & Abdominal Exam: Soft, Diminished Bowel Sounds. absent: Distended, Firm, Rigid, Tenderness, Hyperactive Bowel Sounds, Hypoactive Bowel Sounds, Normal Bowel Sounds Additional comments: cachetic PEG tube with bandaging in place, LUQ region - Extremities Exam Extremities Exam: absent: Calf Tenderness, Joint Swelling, Pedal Edema, Tenderness Additional comments: thin and frail seeming upper and lower extremities, no edema/erythema/swelling/ tenderness in bilateral LE. - Neurological Exam Additional comments: somnolent/lethargic but arousable, awake and alert after, following all commands appropriately - Psychiatric Exam Psychiatric exam: Flat Affect, Normal Mood - Skin Skin Exam: Dry, Intact, Normal Color, Warm Assessment and Plan - Assessment and Plan (Free Text) Assessment: This is a 56 yo AA M with PMH of oropharyngeal Ca that presented with neck pain and hemoptysis, and was found to have anemia with Hgb 6.8, requiring transfusion. He is pending decision regarding goals of care and DNR/DNI, as per Palliative. Plan: 1) Oropharyngeal carcinoma -CT Neck/Chest reviewed; revealed vascular destructive mass representing patients known head and neck cancer measuring approximately 9.2cm in greatest dimension. Thecal sac and intracranial extension along with significant bony destruction are identified; mass effect on the nasopharyngeal and oropharyngeal airway; no discrete metastatic disease is detected within the chest; see full report -PET scan from 02/19/15 reviewed; revealed FDG avid lesion extending from the posterior tongue into the left vallecula, likely represented primary malignancy ; solitary rounded FDG-avid lesion along the left posterior lateral oropharynx likely representing an enlarged retropharyngeal lymph node; no evidence of metastatic disease in the chest, abdomen or pelvis; see full report -Dr. Villarreal consulted for Heme-onc; as per discussion between Dr. Daniel (pt's primary heme-onc) and Primary team, patient is stage IV with multiple mets and has failed all treatments, inopperable tumor, consult Palliative -As per Palliative, discussed goals of care, code status with patient; seems amenable to DNR/DNI but wants to discuss with sister first, will f/u -EKG reviewed; NSR, normal axis, T wave inversions in inferior leads; no prior for comparison -CXR reviewed; no active disease, central line in place -ENT consulted - Dr. Gaines, appreciate all recs -Dr. Swan (Pulm) consulted for hemoptysis, appreciate all recs 2) Acute anemia -Hgb 6.8 on presentation, 11.6 s/p 2 units pRBCs, 10.2 today, f/u tmr AM CBC -Anemia workup: Iron, Ferritin, TIBC, reticulocyte count, B12, folate -Heme/onc consulted - Dr. Villarreal 3) Hyponatremia -serum hypo-osmolar at 266, urine osmolarity 294, Urine random sodium 82 -SIADH (possibly 2/2 tumor production) vs renal salt wasting -patient appears to be leaning towards DNR/DNI, possible comfort measures, will f/u with Palliative tmr, if remains full code then can consult Nephro 4) Hypomagnesemia -Mag 1.5, repleted, f/u on AM labs 5) Tube feeds -increased goal rate to 50 -Knife Sharpener consulted for appropriate tube feeds, appreciate all recs Dispo: Med/Surg, pending Palliative f/u, pending AM labs to assess repletion and Anemia FEN: PEG feeds, goal rate increased to 50 Access: Peripheral IV, PEG, Port-a-cath Consults: Heme-onc, Palliative, Pulm, ENT Ppx: Protonix for GI, SCDs for DVT (avoid AC given anemia and hemoptysis) Patient seen, reviewed, and discussed with attending, Dr. Galindo. <Seymour Galindo - Last Filed: 01/18/17 10:06> Objective - Vital Signs/Intake and Output Vital Signs (last 24 hours): Temp Pulse Resp BP Pulse Ox 98.6 F 96 H 18 142/96 H 92 L 01/04/17 16:00 01/04/17 16:00 01/04/17 16:00 01/04/17 16:00 01/04/17 16:00 - Labs Labs: 01/04/17 06:25 01/04/17 22:04 PT 12.0 Seconds (9.9-11.8) H 12/28/16 20:00 INR 1.11 (0.93-1.08) H 12/28/16 20:00 APTT 26.7 Seconds (23.7-30.8) 12/28/16 20:00 Attending/Attestation - Attestation I have personally seen and examined this patient.: Yes I have fully participated in the care of the patient.: Yes I have reviewed all pertinent clinical information, including history, physical exam and plan: Yes Notes (Text): 01/18/17 10:06 Medical record note made by resident after discussion with my direction and input after the patient personally seen and examined by me. I have reviewed the chart and agree that the note represents my personal history, physical, data review and plan.
[2016-12-30] MEDS ORDERED: Magnesium Sulfate 2 GM in Sodium Chloride 0.9% 100 ML IVPB ONE (17:01)
[2016-12-31] MEDS: Morphine 2 mg/ml ISec IVP PRN ×3 (03:05→11:16)
[2016-12-31] MEDS ORDERED: Albuterol-Ipratrop 3 mg / 0.5 (3 ml) UD IH PRN (07:31)
[2016-12-31] MEDS: Albuterol-Ipratrop 3 mg / 0.5 (3 ml) UD IH SCH ×3 (07:57→21:22)
[2016-12-31] MEDS: Acetylcysteine 20% Inhal Soln (4ml) IH SCH ×3 (07:58→21:22)
[2016-12-31 08:04] LABS: ALB/GLOB RATIO 0.9 (1.1-1.8); ALBUMIN 3.4 g/dL (3.0-4.8); ALT/SGPT 29 U/L (7-56); AST/SGOT 41 U/L (15-59); BLOOD UREA NITROGEN 13 mg/dL (7-21); CALCIUM 9.2 mg/dL (8.4-10.5); GFR AFRICAN-AMERICAN > 60; GFR NON-AFRICAN AMERICAN > 60
[2016-12-31 08:12] LABS: BASO # 0.01 K/mm3 (0.0-2.0); BASO % 0.1 % (0.0-3.0); GRAN # 8.13 (1.4-6.5); GRAN % 84.7 % (50.0-68.0); HEMOGLOBIN 10.9 gm/dL (14.0-18.0); LYMPH # 0.6 (1.2-3.4); LYMPH % 6.3 % (22.0-35.0); MEAN CELL VOLUME 88.1 fL (80.0-105.0); MEAN CORPUSCULAR HGB CONC 35.2 g/dl (31.0-37.0); MEAN PLATELET VOLUME 8.7 fl (7.0-11.0); MONO # 0.9 (0.1-0.6); MONO % 8.9 % (1.0-6.0); PLATELET COUNT 428 10^3/uL (120.0-450.0); RBC 3.52 10^6/uL (3.5-6.1); RED CELL DISTRIBUTION WIDTH 14.3 % (11.5-14.5); WHITE BLOOD COUNT 9.6 10^3/ul (4.5-11.0)
[2016-12-31] MEDS ORDERED: Morphine 2 mg/ml ISec IVP STA (13:10)
[2016-12-31] MEDS ORDERED: Morphine 4 mg/ml ISec IV STA (13:13)
--- NOTE | 2016-12-31 13:37 | CP.PCM.PN ---
Subjective - Date & Time of Evaluation Date of Evaluation: 12/31/16 Time of Evaluation: 13:00 - Subjective Subjective: Aler Coughing up thick white sputum. Complaining of neck and shoulder pain Objective - Vital Signs/Intake and Output Vital Signs (last 24 hours): Temp Pulse Resp BP Pulse Ox 98.3 F 96 H 20 115/77 99 12/31/16 06:00 12/31/16 07:55 12/31/16 06:00 12/31/16 06:00 12/31/16 06:00 Intake and Output: 12/31/16 12/31/16 06:59 18:59 Intake Total 0 50 Output Total 1200 100 Balance -1200 -50 - Medications Medications: Current Medications Acetaminophen (Tylenol 325mg Tab) 650 mg PO Q4H PRN PRN Reason: Fever >100.4 F Acetylcysteine (Acetylcysteine 20%) 4 ml IH [id number] [facility] Last Admin: 12/31/16 13:27 Dose: Not Given Albuterol/Ipratropium (Duoneb 3 Mg/0.5 Mg (3 Ml) Ud) 3 ml IH [id number] [facility] Last Admin: 12/31/16 13:27 Dose: Not Given Albuterol/Ipratropium (Duoneb 3 Mg/0.5 Mg (3 Ml) Ud) 3 ml IH Q2H PRN PRN Reason: Shortness of Breath Morphine Sulfate (Morphine) 3 mg IVP Q4H PRN PRN Reason: Pain, moderate (4-7) Pantoprazole Sodium (Protonix Inj) 40 mg IVP DAILY [facility] Last Admin: 12/31/16 09:53 Dose: 40 mg Sodium Chloride (Sodium Chloride Tab) 1 gm PEG TID [facility] - Labs Labs: 12/31/16 07:00 12/31/16 07:00 PT 12.0 Seconds (9.9-11.8) H 12/28/16 20:00 INR 1.11 (0.93-1.08) H 12/28/16 20:00 APTT 26.7 Seconds (23.7-30.8) 12/28/16 20:00 - Constitutional Appears: Cachectic, Chronically Ill - Head Exam Head Exam: NORMOCEPHALIC - Eye Exam Pupil Exam: NORMAL ACCOMODATION - ENT Exam ENT Exam: Mucous Membranes Moist - Respiratory Exam Respiratory Exam: Decreased Breath Sounds, NORMAL BREATHING PATTERN - Cardiovascular Exam Cardiovascular Exam: REGULAR RHYTHM, +S1, +S2 - GI/Abdominal Exam GI & Abdominal Exam: Soft, Normal Bowel Sounds - Extremities Exam Extremities Exam: Full ROM, Pedal Edema - Back Exam Back Exam: NORMAL INSPECTION - Skin Skin Exam: Dry, Warm Assessment and Plan - Assessment and Plan (Free Text) Assessment: 56 year old male admitted with [facility] The patient is alert.We discusses goals of care Patient states that he spoke with his sister.He does not want to be resuscitated by CPR or intubated if his condition worsens. He completed a POLST: DNR/DNI. His sister Loli Palma is named as his health care surrogate. Comfort care options offered. He is not ready for comfort measures at this time. He is complaining of neck and shoulder pain,states the medication he is receiving here is not strong enough. He states he was taking Oxycodone 10 mg ER three times a day at home. I explained that he was on fluid restriction at this time so prefer not to give him oral medication. I offered him a Fentanyl transdermal patch which he refused. He states he doesn't like the way it makes him feel. Plan: Morphine 3 mg IVP now. Will increase to Morphine 3 mg IV every 4 hours. Monitor for opioid induced constipation. Ducolax suppository PRN.
--- NOTE | 2016-12-31 15:08 | CP.PCM.CON ---
History of Present Illness - History of Present Illness History of Present Illness: Initial Nephrology Consultation: Assessment: worsening Hyponatremia Hypo-osmolar ? hypovolemia ? SIADH due to malignancy, pain advanced neck cancer Hypomagnesemia chronic respi acidosis with metabolic compensation Plan supplement electrolytres director of product design has switched her from jevity 1.2 to Nephro in view of hyponatremia which has higher osmol supplement electrolytes considering drop in serum Na will start 3% saline and once sodium better then can switch to normal saline avoid Serum Na rise >6-8 meq/24 hours although his Na level drop to 119 is more acute and he is 125 as chronic hence can bring him back to 125 relatively faster. Further work up for as per primary team Thanks for allowing me to participate in care of your patient. Will follow patient with you. Please call if any Qs Dr Tha Gutiérrez Office: [phone] Chief Complaint; left neck pain Reason for consult: hyponatremia HPI: Pt is a 56 y/o M with hx of neck cancer and now DNR/DNI, going towards mostly palliative care, consulted for hyponatremia. pt c/o left neck pain, SOB and cough with phlegm, reported loss of extensive weight. gets feed via PEG tube. Denies chest pain, palpitation, leg swelling Denies blood or bubbles in urine ROS: limited due to patient illness and he wanted to take rest, says cant answer all those questions has decreased appetite. has neck pain and SOB with cough. loss of weight + Physical Examination: General Appearance: uncomfortable, in no acute respiratory distress, ill appearing, cachexic Vitals reviewed and noted as below Head; Atraumatic, normocephalic ENT: poor dentition EYES: Pupils are equal, round and reactive to light accommodation. Eye muscles and extraocular movement intact. Sclera is anicteric. Neck;left neck mass+ Lungs: somewhat increased respiratory rate/effort. Breath sounds bilateral decreased Heart: Normal rate. s1s2 normal. No rub or gallop. Extremities: no edema. No varicose veins Neurological: Patient is awake but tired and oriented to person, place and time. No focal deficit. Strength bilateral appropriate and equal Skin: Warm and dry. Normal turgor. No rash. Palpitation: Normal elasticity for age Abdomen: Abdomen is soft. Bowel sounds +. There is no abdominal tenderness, no guarding/rigidity or organomegaly. has feeding tube + Psych: deferred MSK: no joint tenderness or swelling. Digits and nails normal, no deformity : kidney or bladder not palpable Labs/imaging/EKG reviewed. Past medical history, past surgical history, family history, social history, allergy reviewed and noted as below famil hx: no hx of CKD, no contributory WORK UP TSAT 9% Ferriitn 991 Alb 3.4 Mag 1.5 Phos 3.7 UA: SG 1.015 Na 82 Urine osmol 294 Serum osmol 266 ABG": 7.38/66/39/69% Past Patient History - Infectious Disease Hx of Infectious Diseases: None - Past Social History Smoking Status: Former Smoker - CARDIAC Hx Cardiac Disorders: No - PULMONARY Hx Respiratory Disorders: Yes Hx Pneumonia: Yes Other/Comment[place] [facility] [place] - NEUROLOGICAL Hx Neurological Disorder: No - HEENT Hx HEENT Problems: No - RENAL Hx Chronic Kidney Disease: No - ENDOCRINE/METABOLIC Hx Endocrine Disorders: No - HEMATOLOGICAL/ONCOLOGICAL Hx Blood Disorders: Yes Hx Cancer: Yes (throat cancer) - INTEGUMENTARY Hx Dermatological Problems: No - MUSCULOSKELETAL/RHEUMATOLOGICAL Hx Musculoskeletal Disorders: No - GASTROINTESTINAL Hx Gastrointestinal Disorders: Yes Other/Comment: G tube - GENITOURINARY/GYNECOLOGICAL Hx Genitourinary Disorders: No - PSYCHIATRIC Hx Psychophysiologic Disorder: No Hx Substance Use: No - SURGICAL HISTORY Other/Comment: G tube placed. R chest port - ANESTHESIA Hx Anesthesia: Yes Hx Anesthesia Reactions: No Meds Allergies/Adverse Reactions: Allergies Allergy/AdvReac Type Severity Reaction Status Date / Time No Known Allergies Allergy Verified 12/28/16 19:21 - Medications Medications: Current Medications Acetaminophen (Tylenol 325mg Tab) 650 mg PO Q4H PRN PRN Reason: Fever >100.4 F Acetylcysteine (Acetylcysteine 20%) 4 ml IH [id number] [facility] Last Admin: 12/31/16 13:27 Dose: Not Given Albuterol/Ipratropium (Duoneb 3 Mg/0.5 Mg (3 Ml) Ud) 3 ml IH [id number] [facility]LYN Last Admin: 12/31/16 13:27 Dose: Not Given Albuterol/Ipratropium (Duoneb 3 Mg/0.5 Mg (3 Ml) Ud) 3 ml IH Q2H PRN PRN Reason: Shortness of Breath Bisacodyl (Dulcolax) 10 mg RC DAILY PRN PRN Reason: Constipation Morphine Sulfate (Morphine) 3 mg IVP Q4H PRN PRN Reason: Pain, moderate (4-7) Pantoprazole Sodium (Protonix Inj) 40 mg IVP DAILY [facility] Last Admin: 12/31/16 09:53 Dose: 40 mg Sodium Chloride (Sodium Chloride Tab) 1 gm PEG TID [facility] Last Admin: 12/31/16 13:36 Dose: 1 gm Results - Vital Signs Recent Vital Signs: Last Vital Signs Temp 98.3 F 12/31/16 06:00 Pulse 96 H 12/31/16 07:55 Resp 20 12/31/16 06:00 BP 115/77 12/31/16 06:00 Pulse Ox 99 12/31/16 06:00 - Labs Result Diagrams: 12/31/16 07:00 12/31/16 07:00 Labs: Laboratory Results - last 24 hr 12/31/16 12/31/16 07:00 07:00 WBC 9.6 RBC 3.52 Hgb 10.9 L Hct 31.0 L MCV 88.1 MCH 31.0 MCHC 35.2 RDW 14.3 Plt Count 428 MPV 8.7 Gran % 84.7 H Lymph % (Auto) 6.3 L [place] % (Auto) 8.9 H Eos % (Auto) 0.0 L Baso % (Auto) 0.1 Gran # 8.13 H Lymph # 0.6 L [place] # 0.9 H Eos # 0.0 Baso # 0.01 Sodium 119 L* Potassium 4.2 Chloride 80 L Carbon Dioxide 32 Anion Gap 11 BUN 13 Creatinine 0.5 Est GFR ( Amer) > 60 Est GFR (Non-Af Amer) > 60 Random Glucose 105 Calcium 9.2 Total Bilirubin 0.7 AST 41 ALT 29 Alkaline Phosphatase 70 Total Protein 7.0 Albumin 3.4 Globulin 3.6 Albumin/Globulin Ratio 0.9 L
--- NOTE | 2016-12-31 15:38 | CP.PCM.PN ---
<Vinh Jackman - Last Filed: 12/31/16 16:18> Subjective - Date & Time of Evaluation Date of Evaluation: 12/31/16 Time of Evaluation: 07:20 - Subjective Subjective: Internal Medicine Progress Dr. Galindo/Dr. Rob service Patient seen and examined at bedside. Today is hospital day 3. Sodium abruptly decreased to 119 on AM labs. Still complaining of dry throat and thick mucous. Patient denies chest pain, shortness of breath, room spinning sensation, or new hemoptysis. AAOx3, displays logical thought. As per Palliative, patient has elected to be made DNR/DNI, but remains undecided on comfort care. His sister Loli has been made his healthcare surrogate. Objective - Vital Signs/Intake and Output Vital Signs (last 24 hours): Temp Pulse Resp BP Pulse Ox 98.3 F 96 H 20 115/77 99 12/31/16 06:00 12/31/16 07:55 12/31/16 06:00 12/31/16 06:00 12/31/16 06:00 Intake and Output: 12/31/16 12/31/16 06:59 18:59 Intake Total 0 50 Output Total 1200 600 Balance -1200 -550 - Medications Medications: Current Medications Acetaminophen (Tylenol 325mg Tab) 650 mg PO Q4H PRN PRN Reason: Fever >100.4 F Acetylcysteine (Acetylcysteine 20%) 4 ml IH [id number] [facility] Last Admin: 12/31/16 13:27 Dose: Not Given Albuterol/Ipratropium (Duoneb 3 Mg/0.5 Mg (3 Ml) Ud) 3 ml IH [id number] [facility] Last Admin: 12/31/16 13:27 Dose: Not Given Albuterol/Ipratropium (Duoneb 3 Mg/0.5 Mg (3 Ml) Ud) 3 ml IH Q2H PRN PRN Reason: Shortness of Breath Bisacodyl (Dulcolax) 10 mg RC DAILY PRN PRN Reason: Constipation Sodium Chloride (Hypertonic Saline 3%) 500 mls @ 30 mls/hr IV .[id number] [facility] Morphine Sulfate (Morphine) 3 mg IVP Q4H PRN PRN Reason: Pain, moderate (4-7) Pantoprazole Sodium (Protonix Inj) 40 mg IVP DAILY [facility] Last Admin: 12/31/16 09:53 Dose: 40 mg Sodium Chloride (Sodium Chloride Tab) 1 gm PEG TID [facility] Last Admin: 12/31/16 13:36 Dose: 1 gm - Labs Labs: 12/31/16 07:00 12/31/16 07:00 PT 12.0 Seconds (9.9-11.8) H 12/28/16 20:00 INR 1.11 (0.93-1.08) H 12/28/16 20:00 APTT 26.7 Seconds (23.7-30.8) 12/28/16 20:00 - Additional Findings Additional findings: - Constitutional Appears: Non-toxic, No Acute Distress, Cachectic, Chronically Ill - Head Exam Head Exam: ATRAUMATIC, NORMAL INSPECTION, NORMOCEPHALIC - Eye Exam Eye Exam: EOMI, Normal appearance. absent: Conjunctival injection, Scleral icterus Pupil Exam: absent: Irregular, Unequal - ENT Exam ENT Exam: Mucous Membranes Moist, Copious thick white mucous in mouth, Muffled voice - Neck Exam Neck Exam: Tenderness statically (not worse with palpation) - Respiratory Exam Respiratory Exam: Clear to Ausculation Bilateral, NORMAL BREATHING PATTERN. absent: Rales, Rhonchi, Wheezes - Cardiovascular Exam Cardiovascular Exam: REGULAR RHYTHM, RRR, +S1, +S2. absent: Bradycardia, Tachycardia, Irregular Rhythm, +S4 - GI/Abdominal Exam GI & Abdominal Exam: Soft, Diminished Bowel Sounds, Cachetic, PEG tube with bandaging in place (LUQ region). absent: Distended, Firm, Rigid, Tenderness, Hyperactive Bowel Sounds, Hypoactive Bowel Sounds, Normal Bowel Sounds - Extremities Exam Extremities Exam: Thin and frail seeming upper and lower extremities. absent: Calf Tenderness, Joint Swelling, Pedal Edema, Tenderness, edema/erythema/ swelling/tenderness in bilateral LE. - Neurological Exam Neurological Exam: Awake and alert, following commands, spontaneously moving all extremities - Psychiatric Exam Psychiatric exam: Flat Affect, Normal Mood, AAOx3 (place, year, self) - Skin Skin Exam: Dry, Intact, Normal Color, Warm Assessment and Plan - Assessment and Plan (Free Text) Assessment: This is a 56 yo AA M with PMH of oropharyngeal Ca that presented with neck pain and hemoptysis, and was found to have anemia with Hgb 6.8, requiring transfusion. 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 DNR/DNI but not Comfort care/hospice as per Palliative. Plan: 1) Oropharyngeal carcinoma -CT Neck/Chest reviewed; revealed vascular destructive mass representing patients known head and neck cancer measuring approximately 9.2cm in greatest dimension. Thecal sac and intracranial extension along with significant bony destruction are identified; mass effect on the nasopharyngeal and oropharyngeal airway; no discrete metastatic disease is detected within the chest; see full report -PET scan from 02/19/15 reviewed; revealed FDG avid lesion extending from the posterior tongue into the left vallecula, likely represented primary malignancy ; solitary rounded FDG-avid lesion along the left posterior lateral oropharynx likely representing an enlarged retropharyngeal lymph node; no evidence of metastatic disease in the chest, abdomen or pelvis; see full report -Dr. Villarreal consulted for Heme-onc; as per discussion between Dr. Daniel (pt's primary heme-onc) and Primary team, patient is stage IV with multiple mets and has failed all treatments, inopperable tumor, consult Palliative -As per Palliative, discussed goals of care, code status with patient; seems amenable to DNR/DNI but wants to discuss with sister first, will f/u -EKG reviewed; NSR, normal axis, T wave inversions in inferior leads; no prior for comparison -CXR reviewed; no active disease, central line in place -ENT consulted - Dr. Gaines, appreciate all recs -Dr. Swan (Pulm) consulted for hemoptysis, appreciate all recs 2) Acute anemia -Hgb 6.8 on presentation, 11.6 s/p 2 units pRBCs, 10.2 today, f/u tmr AM CBC -Anemia workup: Iron, Ferritin, TIBC, reticulocyte count, B12, folate -Heme/onc consulted - Dr. Villarreal 3) Hyponatremia -serum hypo-osmolar at 266, urine osmolarity 294, Urine random sodium 82 -likely SIADH due to malignancy vs renal salt wasting -Nephro consulted (Dr. Gutiérrez), appreciate all recs -Na today 119, fluid restriction ordered, hypertonic saline as per Nephro -avoid over-repletion of sodium within 24 hours, goal for tomorrow AM is not more than 124-125 4) Hypomagnesemia -Mag repleted, f/u and replete further as needed 5) Tube feeds -Finisher Denture consulted for appropriate tube feeds; recs converting to Nepro Dispo: Med/Surg, Hypertonic saline for hypoNa, pending decision on comfort care/ hospice FEN: PEG feeds, goal rate increased to 50 Access: Peripheral IV, PEG, Port-a-cath Consults: Heme-onc, Palliative, Pulm, ENT, Nephro Ppx: Protonix for GI, SCDs for DVT (avoid AC given anemia and hemoptysis) Patient seen, reviewed, and discussed with attending, Dr. Rob. <[place] Rob - Last Filed: 01/05/17 15:25> Objective - Vital Signs/Intake and Output Vital Signs (last 24 hours): Temp Pulse Resp BP Pulse Ox 98.6 F 96 H 18 142/96 H 92 L 01/04/17 16:00 01/04/17 16:00 01/04/17 16:00 01/04/17 16:00 01/04/17 16:00 Intake and Output: 01/05/17 01/05/17 06:59 18:59 Intake Total 0 Output Total 200 Balance -200 - Labs Labs: 01/04/17 06:25 01/04/17 22:04 PT 12.0 Seconds (9.9-11.8) H 12/28/16 20:00 INR 1.11 (0.93-1.08) H 12/28/16 20:00 APTT 26.7 Seconds (23.7-30.8) 12/28/16 20:00 Attending/Attestation - Attestation I have personally seen and examined this patient.: Yes I have fully participated in the care of the patient.: Yes I have reviewed all pertinent clinical information, including history, physical exam and plan: Yes Notes (Text): 01/05/17 15:25 Medical record note made by the resident after discussion with my direction and input after the patient was personally seen and examined by me. I have reviewed the chart and agree that the record accurately reflects by personal performance of the history, physical exam, data review, and medical decision-making, in the course for the patient. I have also personally directed the plan of care.
[2016-12-31] MEDS: Sodium Chloride 3% 500 ML IV SCH (15:49)
[2016-12-31] MEDS: Morphine 4 mg/ml ISec IVP PRN ×2 (15:54→20:38)
[2016-12-31] MEDS ORDERED: Magnesium Sulfate 2 GM in Sodium Chloride 0.9% 100 ML IVPB ONE (17:34)
[2016-12-31 20:24] LABS: BLOOD UREA NITROGEN 13 mg/dL (7-21); CALCIUM 9.1 mg/dL (8.4-10.5); GFR AFRICAN-AMERICAN > 60; GFR NON-AFRICAN AMERICAN > 60
[2017-01-01] MEDS: Morphine 4 mg/ml ISec IVP PRN ×4 (00:44→23:37)
[2017-01-01 01:04] LABS: BLOOD UREA NITROGEN 14 mg/dL (7-21); CALCIUM 8.8 mg/dL (8.4-10.5); GFR AFRICAN-AMERICAN > 60; GFR NON-AFRICAN AMERICAN > 60
[2017-01-01] MEDS: Albuterol-Ipratrop 3 mg / 0.5 (3 ml) UD IH SCH ×4 (02:00→20:56)
[2017-01-01] MEDS: Acetylcysteine 20% Inhal Soln (4ml) IH SCH ×4 (02:00→20:56)
[2017-01-01 04:43] LABS: BLOOD UREA NITROGEN 13 mg/dL (7-21); CALCIUM 8.9 mg/dL (8.4-10.5); GFR AFRICAN-AMERICAN > 60; GFR NON-AFRICAN AMERICAN > 60
[2017-01-01] MEDS: Sodium Chloride 3% 500 ML IV SCH (09:01)
[2017-01-01 09:10] LABS: EOS % 0.1 % (1.5-5.0); GRAN % 84.9 % (50.0-68.0); HEMOGLOBIN 9.9 gm/dL (14.0-18.0); LYMPH # 0.5 (1.2-3.4); LYMPH % 5.4 % (22.0-35.0); MEAN CELL VOLUME 89.5 fL (80.0-105.0); MEAN CORPUSCULAR HEMOGLOBIN 31.4 pg (25.0-35.0); MEAN CORPUSCULAR HGB CONC 35.1 g/dl (31.0-37.0); MEAN PLATELET VOLUME 8.4 fl (7.0-11.0); MONO # 0.9 (0.1-0.6); MONO % 9.6 % (1.0-6.0); PLATELET COUNT 356 10^3/uL (120.0-450.0); RBC 3.15 10^6/uL (3.5-6.1); RED CELL DISTRIBUTION WIDTH 14.4 % (11.5-14.5); WHITE BLOOD COUNT 9.7 10^3/ul (4.5-11.0)
[2017-01-01 09:21] LABS: ALB/GLOB RATIO 0.9 (1.1-1.8); ALBUMIN 3.1 g/dL (3.0-4.8); ALT/SGPT 30 U/L (7-56); AST/SGOT 36 U/L (15-59); BLOOD UREA NITROGEN 13 mg/dL (7-21); CALCIUM 8.9 mg/dL (8.4-10.5); GFR AFRICAN-AMERICAN > 60; GFR NON-AFRICAN AMERICAN > 60; MAGNESIUM 1.6 mg/dL (1.7-2.2)
[2017-01-01] MEDS ORDERED: Sodium Chloride 3% 500 ML IV SCH ×2 (09:30→09:45)
--- NOTE | 2017-01-01 10:05 | CP.PCM.PN ---
Subjective - Date & Time of Evaluation Date of Evaluation: 01/01/17 Time of Evaluation: 10:00 - Subjective Subjective: Follow up Nephrology Consultation: Assessment: worsening Hyponatremia Hypo-osmolar ? hypovolemia ? SIADH due to malignancy, pain advanced neck cancer Hypomagnesemia chronic respi acidosis with metabolic compensation Plan supplement electrolytres pedigree researcher has switched her from jevity 1.2 to Nephro in view of hyponatremia which has higher osmol supplement electrolytes continue with 3% saline at lower rate @ 20 ml/hr and stop it once serum Na 127. monitor serum Na q4 hrs avoid Serum Na rise >6-8 meq/24 hours. Further work up for as per primary team Thanks for allowing me to participate in care of your patient. Will follow patient with you. Please call if any Qs Dr Tha Gutiérrez Office: [phone] Reason for consult: hyponatremia HPI: Pt is a 56 y/o M with hx of neck cancer and now DNR/DNI, going towards mostly palliative care, consulted for hyponatremia. ROS:c/o left neck pain, and cough with phlegm, reported loss of extensive weight. gets feed via PEG tube. Denies chest pain, palpitation, leg swelling Denies blood or bubbles in urine Physical Examination: General Appearance: uncomfortable, in no acute respiratory distress, ill appearing, cachexic Vitals reviewed and noted as below Neck;left neck mass+ Lungs: somewhat increased respiratory rate/effort. Breath sounds bilateral decreased Heart: Normal rate. s1s2 normal. No rub or gallop. Extremities: no edema. No varicose veins Neurological: Patient is awake but tired and oriented to person, place and time. No focal deficit. Strength bilateral appropriate and equal Abdomen: Abdomen is soft. Bowel sounds +. There is no abdominal tenderness, no guarding/rigidity or organomegaly. has feeding tube + : kidney or bladder not palpable Labs/imaging/EKG reviewed. Past medical history, past surgical history, family history, social history, allergy reviewed and noted as below famil hx: no hx of CKD, no contributory WORK UP TSAT 9% Ferriitn 991 Alb 3.4 Mag 1.5 Phos 3.7 UA: SG 1.015 Na 82 Urine osmol 294 Serum osmol 266 ABG": 7.38/66/39/69% Objective - Vital Signs/Intake and Output Vital Signs (last 24 hours): Temp Pulse Resp BP Pulse Ox 98.6 F 92 H 20 118/88 100 01/01/17 07:50 01/01/17 07:50 01/01/17 07:50 01/01/17 07:50 01/01/17 07:50 Intake and Output: 01/01/17 01/01/17 06:59 18:59 Intake Total 0 0 Output Total 700 450 Balance -700 -450 - Medications Medications: Current Medications Acetaminophen (Tylenol 325mg Tab) 650 mg PO Q4H PRN PRN Reason: Fever >100.4 F Acetylcysteine (Acetylcysteine 20%) 4 ml IH [id number] [facility] Last Admin: 01/01/17 07:58 Dose: 4 ml Albuterol/Ipratropium (Duoneb 3 Mg/0.5 Mg (3 Ml) Ud) 3 ml IH [id number] [facility] Last Admin: 01/01/17 07:58 Dose: 3 ml Albuterol/Ipratropium (Duoneb 3 Mg/0.5 Mg (3 Ml) Ud) 3 ml IH Q2H PRN PRN Reason: Shortness of Breath Bisacodyl (Dulcolax) 10 mg RC DAILY PRN PRN Reason: Constipation Sodium Chloride (Hypertonic Saline 3%) 500 mls @ 20 mls/hr IV .Q24H [facility] Morphine Sulfate (Morphine) 3 mg IVP Q4H PRN PRN Reason: Pain, moderate (4-7) Last Admin: 01/01/17 06:05 Dose: 3 mg Pantoprazole Sodium (Protonix Inj) 40 mg IVP DAILY [facility] Last Admin: 01/01/17 09:14 Dose: 40 mg - Labs Labs: 01/01/17 09:00 01/01/17 09:00 PT 12.0 Seconds (9.9-11.8) H 12/28/16 20:00 INR 1.11 (0.93-1.08) H 12/28/16 20:00 APTT 26.7 Seconds (23.7-30.8) 12/28/16 20:00
--- NOTE | 2017-01-01 10:44 | CP.PCM.PN ---
<Vinh Jackman - Last Filed: 01/01/17 21:54> Subjective - Date & Time of Evaluation Date of Evaluation: 01/01/17 Time of Evaluation: 07:40 - Subjective Subjective: Internal Medicine Progress Dr. Galindo/Dr. Rob service Patient seen and examined at bedside. Today is hospital day 4. Sodium improved to 125 this AM, Nephro aware. AAOx3, displays logical thoughts, but also becoming frustrated with hospital stay, expressing desire to return home. Reports refusing breathing treatments this AM because he felt it was making his throat worse. Still complaining of dry throat and thick mucous. Patient denies chest pain, shortness of breath, room spinning sensation, or new hemoptysis. Objective - Vital Signs/Intake and Output Vital Signs (last 24 hours): Temp Pulse Resp BP Pulse Ox 98.6 F 92 H 20 118/88 100 01/01/17 07:50 01/01/17 07:50 01/01/17 07:50 01/01/17 07:50 01/01/17 07:50 Intake and Output: 01/01/17 01/01/17 06:59 18:59 Intake Total 0 0 Output Total 700 450 Balance -700 -450 - Medications Medications: Current Medications Acetaminophen (Tylenol 325mg Tab) 650 mg PO Q4H PRN PRN Reason: Fever >100.4 F Acetylcysteine (Acetylcysteine 20%) 4 ml IH [id number] [facility] Last Admin: 01/01/17 07:58 Dose: 4 ml Albuterol/Ipratropium (Duoneb 3 Mg/0.5 Mg (3 Ml) Ud) 3 ml IH [id number] [facility] Last Admin: 01/01/17 07:58 Dose: 3 ml Albuterol/Ipratropium (Duoneb 3 Mg/0.5 Mg (3 Ml) Ud) 3 ml IH Q2H PRN PRN Reason: Shortness of Breath Bisacodyl (Dulcolax) 10 mg RC DAILY PRN PRN Reason: Constipation Sodium Chloride (Hypertonic Saline 3%) 500 mls @ 20 mls/hr IV .Q24H [facility] Last Admin: 01/01/17 10:00 Dose: 20 mls/hr Morphine Sulfate (Morphine) 3 mg IVP Q4H PRN PRN Reason: Pain, moderate (4-7) Last Admin: 01/01/17 10:29 Dose: 3 mg Pantoprazole Sodium (Protonix Inj) 40 mg IVP DAILY [facility] Last Admin: 01/01/17 09:14 Dose: 40 mg - Labs Labs: 01/01/17 09:00 01/01/17 09:00 PT 12.0 Seconds (9.9-11.8) H 12/28/16 20:00 INR 1.11 (0.93-1.08) H 12/28/16 20:00 APTT 26.7 Seconds (23.7-30.8) 12/28/16 20:00 - Additional Findings Additional findings: - Constitutional Appears: Non-toxic, No Acute Distress, Cachectic, Chronically Ill - Head Exam Head Exam: ATRAUMATIC, NORMAL INSPECTION, NORMOCEPHALIC - Eye Exam Eye Exam: EOMI, Normal appearance. absent: Conjunctival injection, Scleral icterus Pupil Exam: absent: Irregular, Unequal - ENT Exam ENT Exam: Mucous Membranes Moist, Copious thick white mucous in mouth, Muffled voice - Neck Exam Neck Exam: Tenderness statically (not worse with palpation) - Respiratory Exam Respiratory Exam: Clear to Ausculation Bilateral, NORMAL BREATHING PATTERN. absent: Rales, Rhonchi, Wheezes - Cardiovascular Exam Cardiovascular Exam: REGULAR RHYTHM, RRR, +S1, +S2. absent: Bradycardia, Tachycardia, Irregular Rhythm, +S4 - GI/Abdominal Exam GI & Abdominal Exam: Soft, Diminished Bowel Sounds, Cachetic, PEG tube with bandaging in place (LUQ region). absent: Distended, Firm, Rigid, Tenderness, Hyperactive Bowel Sounds, Hypoactive Bowel Sounds, Normal Bowel Sounds - Extremities Exam Extremities Exam: Thin and frail seeming upper and lower extremities. absent: Calf Tenderness, Joint Swelling, Pedal Edema, Tenderness, edema/erythema/ swelling/tenderness in bilateral LE. - Neurological Exam Neurological Exam: Awake and alert, following commands, spontaneously moving all extremities - Psychiatric Exam Psychiatric exam: Flat Affect, Normal Mood, AAOx3 (place, year, self) - Skin Skin Exam: Dry, Intact, Normal Color, Warm Assessment and Plan - Assessment and Plan (Free Text) Assessment: This is a 56 yo AA M with PMH of oropharyngeal Ca that presented with neck pain and hemoptysis, and was found to have anemia with Hgb 6.8, requiring transfusion. DNR/DNI but not Comfort care/hospice as per Palliative. Currently being worked up and treated for his hyponatremia suspected to be due to SIADH 2/2 malignancy. Plan: 1) Oropharyngeal carcinoma -CT Neck/Chest reviewed; revealed vascular destructive mass representing patients known head and neck cancer measuring approximately 9.2cm in greatest dimension. Thecal sac and intracranial extension along with significant bony destruction are identified; mass effect on the nasopharyngeal and oropharyngeal airway; no discrete metastatic disease is detected within the chest; see full report -PET scan from 02/19/15 reviewed; revealed FDG avid lesion extending from the posterior tongue into the left vallecula, likely represented primary malignancy ; solitary rounded FDG-avid lesion along the left posterior lateral oropharynx likely representing an enlarged retropharyngeal lymph node; no evidence of metastatic disease in the chest, abdomen or pelvis; see full report -Dr. Villarreal consulted for Heme-onc; as per discussion between Dr. Daniel (pt's primary heme-onc) and Primary team, patient is stage IV with multiple mets and has failed all treatments, inoperable tumor, consult Palliative -As per Palliative, discussed goals of care, code status with patient; now DNR/ DNI but not comfort care/hospice -EKG reviewed; NSR, normal axis, T wave inversions in inferior leads; no prior for comparison -CXR reviewed; no active disease, central line in place -ENT consulted - Dr. Gaines, appreciate all recs -Dr. Swan (Pulm) consulted for hemoptysis, appreciate all recs 2) Acute anemia -Hgb 6.8 on presentation, 11.6 s/p 2 units pRBCs, 9.9 today, f/u tmr AM CBC -Anemia workup: Iron, Ferritin, TIBC, reticulocyte count, B12, folate -Heme/onc consulted - Dr. Villarreal, appreciate all recs 3) Hyponatremia -serum hypo-osmolar at 266, urine osmolarity 294, Urine random sodium 82 -likely SIADH due to malignancy vs renal salt wasting -Nephro consulted (Dr. Gutiérrez), appreciate all recs -Na today 125, fluid restriction ordered, hypertonic saline to be held when sodium reaches 127 as per Nephro, f/u q4 BMPs 4) Hypomagnesemia -Mag 1.6 despite 2x2g Mag Sulfate IVPB in 48 hours -Repleting with further Mag Sulfate IVPB, f/u repeat Mag level later today 5) Tube feeds -Radiology Tech consulted for appropriate tube feeds; recs converting to Nepro Dispo: Med/Surg, Hypertonic saline for hypoNa, pending decision on comfort care/ hospice FEN: PEG feeds, goal rate increased to 50 Access: Peripheral IV, PEG, Port-a-cath Consults: Heme-onc, Palliative, Pulm, ENT, Nephro Ppx: Protonix for GI, SCDs for DVT (avoid AC given anemia and hemoptysis) Patient reviewed and discussed with attending, Dr. Barrera. <Malcom Barrera S - Last Filed: 01/01/17 22:20> Subjective - Subjective Subjective: Discussed with the resident and agree with the treatment checking the labs continue with dialysis and aggressive care Objective - Vital Signs/Intake and Output Vital Signs (last 24 hours): Temp Pulse Resp BP Pulse Ox 98.6 F 92 H 20 118/88 100 01/01/17 07:50 01/01/17 07:50 01/01/17 07:50 01/01/17 07:50 01/01/17 07:50 Intake and Output: 01/01/17 01/02/17 18:59 06:59 Intake Total 0 Output Total 450 Balance -450 - Medications Medications: Current Medications Acetaminophen (Tylenol 325mg Tab) 650 mg PO Q4H PRN PRN Reason: Fever >100.4 F Acetylcysteine (Acetylcysteine 20%) 4 ml IH [id number] [facility] Last Admin: 01/01/17 20:56 Dose: 4 ml Albuterol/Ipratropium (Duoneb 3 Mg/0.5 Mg (3 Ml) Ud) 3 ml IH [id number] [facility] Last Admin: 01/01/17 20:56 Dose: 3 ml Albuterol/Ipratropium (Duoneb 3 Mg/0.5 Mg (3 Ml) Ud) 3 ml IH Q2H PRN PRN Reason: Shortness of Breath Bisacodyl (Dulcolax) 10 mg RC DAILY PRN PRN Reason: Constipation Morphine Sulfate (Morphine) 3 mg IVP Q4H PRN PRN Reason: Pain, moderate (4-7) Last Admin: 01/01/17 10:29 Dose: 3 mg Pantoprazole Sodium (Protonix Inj) 40 mg IVP DAILY [facility] Last Admin: 01/01/17 09:14 Dose: 40 mg - Labs Labs: 01/01/17 09:00 01/01/17 18:30 PT 12.0 Seconds (9.9-11.8) H 12/28/16 20:00 INR 1.11 (0.93-1.08) H 12/28/16 20:00 APTT 26.7 Seconds (23.7-30.8) 12/28/16 20:00
[2017-01-01] MEDS ORDERED: Magnesium Sulfate 2 GM in Sodium Chloride 0.9% 100 ML IVPB SCH (12:00)
[2017-01-02] MEDS: Acetylcysteine 20% Inhal Soln (4ml) IH SCH ×4 (01:39→19:31)
[2017-01-02] MEDS: Albuterol-Ipratrop 3 mg / 0.5 (3 ml) UD IH SCH ×4 (01:40→19:31)
[2017-01-02] MEDS: Morphine 4 mg/ml ISec IVP PRN ×7 (03:07→22:29)
[2017-01-02 05:26] LABS: ALB/GLOB RATIO 0.9 (1.1-1.8); ALBUMIN 3.2 g/dL (3.0-4.8); ALT/SGPT 31 U/L (7-56); AST/SGOT 37 U/L (15-59); BLOOD UREA NITROGEN 13 mg/dL (7-21); GFR AFRICAN-AMERICAN > 60; GFR NON-AFRICAN AMERICAN > 60; MAGNESIUM 1.9 mg/dL (1.7-2.2)
[2017-01-02 06:25] LABS: BASO # 0.01 K/mm3 (0.0-2.0); BASO % 0.1 % (0.0-3.0); EOS % 0.2 % (1.5-5.0); GRAN # 8.11 (1.4-6.5); GRAN % 86.4 % (50.0-68.0); HEMOGLOBIN 9.1 gm/dL (14.0-18.0); LYMPH # 0.4 (1.2-3.4); MEAN CELL VOLUME 90.9 fL (80.0-105.0); MEAN CORPUSCULAR HEMOGLOBIN 30.7 pg (25.0-35.0); MEAN CORPUSCULAR HGB CONC 33.8 g/dl (31.0-37.0); MEAN PLATELET VOLUME 8.7 fl (7.0-11.0); MONO # 0.9 (0.1-0.6); MONO % 9.3 % (1.0-6.0); PLATELET COUNT 364 10^3/uL (120.0-450.0); RBC 2.96 10^6/uL (3.5-6.1); RED CELL DISTRIBUTION WIDTH 14.6 % (11.5-14.5); WHITE BLOOD COUNT 9.4 10^3/ul (4.5-11.0)
[2017-01-02] MEDS ORDERED: Sodium Chloride 0.9% 1,000 ML IV SCH (09:30)
--- NOTE | 2017-01-02 10:21 | CP.PCM.PN ---
Subjective - Date & Time of Evaluation Date of Evaluation: 01/02/17 Time of Evaluation: 10:19 - Subjective Subjective: Follow up Nephrology Consultation: Assessment: worsening Hyponatremia Hypo-osmolar ? hypovolemia ? SIADH due to malignancy, pain advanced neck cancer Hypomagnesemia chronic respi acidosis with metabolic compensation Plan supplement electrolytres art psychotherapist has switched her from jevity 1.2 to Nephro in view of hyponatremia which has higher osmol supplement electrolytes will start NS @ 50 ml/hr. monitor serum Na q8 hrs. will stop IVF if serum Na starts dropping. check urine Na and osmol today avoid Serum Na rise >6-8 meq/24 hours. Further work up for as per primary team Thanks for allowing me to participate in care of your patient. Will follow patient with you. Please call if any Qs Dr Tha Gutiérrez Office: [phone] Reason for consult: hyponatremia HPI: Pt is a 56 y/o M with hx of neck cancer and now DNR/DNI, going towards mostly palliative care, consulted for hyponatremia. ROS:c/o left neck pain, and cough with phlegm, reported loss of extensive weight. gets feed via PEG tube. Denies chest pain, palpitation, leg swelling Denies blood or bubbles in urine Physical Examination: General Appearance: comfortable, in no acute respiratory distress, ill appearing , cachexic Vitals reviewed and noted as below Neck;left neck mass+ Lungs: normal respiratory rate/effort. Breath sounds bilateral decreased Heart: Normal rate. s1s2 normal. No rub or gallop. Extremities: no edema. No varicose veins Neurological: Patient is awake but tired and oriented to person, place and time. No focal deficit. Strength bilateral appropriate and equal Abdomen: Abdomen is soft. Bowel sounds +. There is no abdominal tenderness, no guarding/rigidity or organomegaly. has feeding tube + : kidney or bladder not palpable Labs/imaging/EKG reviewed. Past medical history, past surgical history, family history, social history, allergy reviewed and noted as below famil hx: no hx of CKD, no contributory WORK UP TSAT 9% Ferriitn 991 Alb 3.4 Mag 1.5 Phos 3.7 UA: SG 1.015 Na 82 Urine osmol 294 Serum osmol 266 ABG": 7.38/66/39/69% Objective - Vital Signs/Intake and Output Vital Signs (last 24 hours): Temp Pulse Resp BP Pulse Ox 98.7 F 81 18 132/88 100 01/02/17 07:39 01/02/17 07:39 01/02/17 07:39 01/02/17 07:39 01/02/17 07:39 Intake and Output: 01/02/17 01/02/17 06:59 18:59 Intake Total 0 Balance 0 - Medications Medications: Current Medications Acetaminophen (Tylenol 325mg Tab) 650 mg PO Q4H PRN PRN Reason: Fever >100.4 F Acetylcysteine (Acetylcysteine 20%) 4 ml IH [id number] [facility] Last Admin: 01/02/17 07:38 Dose: 4 ml Albuterol/Ipratropium (Duoneb 3 Mg/0.5 Mg (3 Ml) Ud) 3 ml IH [id number] [facility] Last Admin: 01/02/17 07:38 Dose: 3 ml Albuterol/Ipratropium (Duoneb 3 Mg/0.5 Mg (3 Ml) Ud) 3 ml IH Q2H PRN PRN Reason: Shortness of Breath Bisacodyl (Dulcolax) 10 mg RC DAILY PRN PRN Reason: Constipation Sodium Chloride (Sodium Chloride 0.9%) 1,000 mls @ 50 mls/hr IV .Q20H [facility] Stop: 01/05/17 09:31 Last Admin: 01/02/17 09:45 Dose: 50 mls/hr Morphine Sulfate (Morphine) 3 mg IVP Q3H PRN PRN Reason: Pain, moderate (4-7) Last Admin: 01/02/17 09:08 Dose: 3 mg Pantoprazole Sodium (Protonix Inj) 40 mg IVP DAILY [facility] Last Admin: 01/02/17 09:08 Dose: 40 mg - Labs Labs: 01/02/17 06:00 01/02/17 05:00 PT 12.0 Seconds (9.9-11.8) H 12/28/16 20:00 INR 1.11 (0.93-1.08) H 12/28/16 20:00 APTT 26.7 Seconds (23.7-30.8) 12/28/16 20:00
[2017-01-02] MEDS: Sodium Chloride 0.9% 1,000 ML IV SCH (10:30)
--- NOTE | 2017-01-02 10:37 | CP.PCM.PN ---
Subjective - Date & Time of Evaluation Date of Evaluation: 01/02/17 Time of Evaluation: 10:00 - Subjective Subjective: seen in bed comfortable at this time no acute c/os to me iv fluids infusing no pain Objective - Vital Signs/Intake and Output Vital Signs (last 24 hours): Temp Pulse Resp BP Pulse Ox 98.7 F 81 18 132/88 100 01/02/17 07:39 01/02/17 07:39 01/02/17 07:39 01/02/17 07:39 01/02/17 07:39 Intake and Output: 01/02/17 01/02/17 06:59 18:59 Intake Total 0 Balance 0 - Medications Medications: Current Medications Acetaminophen (Tylenol 325mg Tab) 650 mg PO Q4H PRN PRN Reason: Fever >100.4 F Acetylcysteine (Acetylcysteine 20%) 4 ml IH [id number] [facility] Last Admin: 01/02/17 07:38 Dose: 4 ml Albuterol/Ipratropium (Duoneb 3 Mg/0.5 Mg (3 Ml) Ud) 3 ml IH [id number] [facility] Last Admin: 01/02/17 07:38 Dose: 3 ml Albuterol/Ipratropium (Duoneb 3 Mg/0.5 Mg (3 Ml) Ud) 3 ml IH Q2H PRN PRN Reason: Shortness of Breath Bisacodyl (Dulcolax) 10 mg RC DAILY PRN PRN Reason: Constipation Sodium Chloride (Sodium Chloride 0.9%) 1,000 mls @ 50 mls/hr IV .Q20H [facility] Stop: 01/05/17 09:31 Morphine Sulfate (Morphine) 3 mg IVP Q3H PRN PRN Reason: Pain, moderate (4-7) Last Admin: 01/02/17 09:08 Dose: 3 mg Pantoprazole Sodium (Protonix Inj) 40 mg IVP DAILY [facility] Last Admin: 01/02/17 09:08 Dose: 40 mg - Labs Labs: 01/02/17 06:00 01/02/17 05:00 PT 12.0 Seconds (9.9-11.8) H 12/28/16 20:00 INR 1.11 (0.93-1.08) H 12/28/16 20:00 APTT 26.7 Seconds (23.7-30.8) 12/28/16 20:00 - Constitutional Appears: In Acute Distress - Respiratory Exam Respiratory Exam: Decreased Breath Sounds, Clear to Ausculation Bilateral - Cardiovascular Exam Cardiovascular Exam: REGULAR RHYTHM - GI/Abdominal Exam GI & Abdominal Exam: Soft, Normal Bowel Sounds - Extremities Exam Extremities Exam: Normal Inspection - Neurological Exam Neurological Exam: Alert, Oriented x3 - Skin Skin Exam: Warm Assessment and Plan - Assessment and Plan (Free Text) Assessment: low na advanced neck cancer low mg anemiauti Plan: went over meds labs discussed w/ renal cont w/ iv fluids rechecking labs poor prognosis
--- NOTE | 2017-01-02 12:27 | CP.PCM.CON ---
History of Present Illness - History of Present Illness History of Present Illness: Oncology Consult Referred by Dr. Galindo for h/o head and neck cancer HPI- Jerod is 56 y/o M with h/o head and neck squamous cell carcinoma diagnosed around 2014. He was initially treated with concurrent cisplatin with RT and since then has been treated with multiple lines of therapy, last on Keytruda. His last PET scan however showed progression. He was admitted now with neck pain and hemoptysis. His Hb was 6.8 on admission that improved after blood transfusion but has been slowly trending down again, Hb is 9.1 today. He complains of swelling around neck and hoarseness. His pain seems to be controlled now. He has been seen by palliative care and he agreed to DNR/DNI. He is still thinking about hospice enrollment. No fever, chills. Denies abdominal pain. He is currently on tube feeds. Denies SOB. PMHx: Oropharyngeal ca diagnosed 2 yrs prior PSHx: PEG tube placement at [facility] [place] Allergies: NKDA Medications: Unable to provide Family Hx: denies family history of cancer Social Hx: Reports former tobacco and alcohol use however unable to quantify amount or how long ago; denies illicit drugs Review of Systems - Review of Systems All systems: reviewed and no additional remarkable complaints except Review of Systems: as in HPI Past Patient History - Infectious Disease Hx of Infectious Diseases: None - Past Social History Smoking Status: Former Smoker - CARDIAC Hx Cardiac Disorders: No - PULMONARY Hx Respiratory Disorders: Yes Hx Pneumonia: Yes Other/Comment: hospitalized at [facility] [place] for pneumonia (december 2016) - NEUROLOGICAL Hx Neurological Disorder: No - HEENT Hx HEENT Problems: No - RENAL Hx Chronic Kidney Disease: No - ENDOCRINE/METABOLIC Hx Endocrine Disorders: No - HEMATOLOGICAL/ONCOLOGICAL Hx Blood Disorders: Yes Hx Cancer: Yes (throat cancer) - INTEGUMENTARY Hx Dermatological Problems: No - MUSCULOSKELETAL/RHEUMATOLOGICAL Hx Musculoskeletal Disorders: No - GASTROINTESTINAL Hx Gastrointestinal Disorders: Yes Other/Comment: G tube - GENITOURINARY/GYNECOLOGICAL Hx Genitourinary Disorders: No - PSYCHIATRIC Hx Psychophysiologic Disorder: No Hx Substance Use: No - SURGICAL HISTORY Other/Comment: G tube placed. R chest port - ANESTHESIA Hx Anesthesia: Yes Hx Anesthesia Reactions: No Meds Allergies/Adverse Reactions: Allergies Allergy/AdvReac Type Severity Reaction Status Date / Time No Known Allergies Allergy Verified 12/28/16 19:21 - Medications Medications: Current Medications Acetaminophen (Tylenol 325mg Tab) 650 mg PO Q4H PRN PRN Reason: Fever >100.4 F Acetylcysteine (Acetylcysteine 20%) 4 ml IH [id number] [facility] Last Admin: 01/02/17 07:38 Dose: 4 ml Albuterol/Ipratropium (Duoneb 3 Mg/0.5 Mg (3 Ml) Ud) 3 ml IH [id number] [facility] Last Admin: 01/02/17 07:38 Dose: 3 ml Albuterol/Ipratropium (Duoneb 3 Mg/0.5 Mg (3 Ml) Ud) 3 ml IH Q2H PRN PRN Reason: Shortness of Breath Bisacodyl (Dulcolax) 10 mg RC DAILY PRN PRN Reason: Constipation Sodium Chloride (Sodium Chloride 0.9%) 1,000 mls @ 50 mls/hr IV .Q20H [facility] Stop: 01/05/17 09:31 Iron Sucrose 200 mg/ Sodium (Chloride) 110 mls @ 110 mls/hr IVPB DAILY [facility] Stop: 01/06/17 12:01 Morphine Sulfate (Morphine) 3 mg IVP Q3H PRN PRN Reason: Pain, moderate (4-7) Last Admin: 01/02/17 09:08 Dose: 3 mg Pantoprazole Sodium (Protonix Inj) 40 mg IVP DAILY [facility] Last Admin: 01/02/17 09:08 Dose: 40 mg Physical Exam - Head Exam Head Exam: ATRAUMATIC - Eye Exam Eye Exam: EOMI, PERRL - ENT Exam ENT Exam: Mucous Membranes Dry - Neck Exam Additional comments: swelling - Respiratory Exam Respiratory Exam: Decreased Breath Sounds (at bases), Clear to Auscultation Bilateral - Cardiovascular Exam Cardiovascular Exam: REGULAR RHYTHM - GI/Abdominal Exam GI & Abdominal Exam: Normal Bowel Sounds, Soft. absent: Tenderness Additional comments: PEG + - Extremities Exam Extremities exam: Negative for: pedal edema - Neurological Exam Neurological exam: Alert Results - Vital Signs Recent Vital Signs: Last Vital Signs Temp 98.7 F 01/02/17 07:39 Pulse 81 01/02/17 07:39 Resp 18 01/02/17 07:39 BP 132/88 01/02/17 07:39 Pulse Ox 100 01/02/17 07:39 - Labs Result Diagrams: 01/02/17 06:00 01/02/17 05:00 Labs: Laboratory Results - last 24 hr 01/01/17 01/01/17 01/02/17 13:30 18:30 01:00 WBC RBC Hgb Hct MCV MCH MCHC RDW Plt Count MPV Gran % Lymph % (Auto) Metcalfe % (Auto) Eos % (Auto) Baso % (Auto) Gran # Lymph # Metcalfe # Eos # Baso # Sodium 126 L 126 L 126 L Potassium Chloride Carbon Dioxide Anion Gap BUN Creatinine Est GFR ( Amer) Est GFR (Non-Af Amer) Random Glucose Calcium Phosphorus Magnesium Total Bilirubin AST ALT Alkaline Phosphatase Total Protein Albumin Globulin Albumin/Globulin Ratio 01/02/17 01/02/17 05:00 06:00 WBC 9.4 RBC 2.96 L Hgb 9.1 L Hct 26.9 L MCV 90.9 MCH 30.7 MCHC 33.8 RDW 14.6 H Plt Count 364 MPV 8.7 Gran % 86.4 H Lymph % (Auto) 4.0 L Metcalfe % (Auto) 9.3 H Eos % (Auto) 0.2 L Baso % (Auto) 0.1 Gran # 8.11 H Lymph # 0.4 L Metcalfe # 0.9 H Eos # 0.0 Baso # 0.01 Sodium 126 L Potassium 3.7 Chloride 87 L Carbon Dioxide 34 H Anion Gap 9 L BUN 13 Creatinine 0.5 Est GFR ( Amer) > 60 Est GFR (Non-Af Amer) > 60 Random Glucose 116 H Calcium 9.0 Phosphorus 3.0 Magnesium 1.9 Total Bilirubin 0.3 AST 37 ALT 31 Alkaline Phosphatase 96 Total Protein 6.7 Albumin 3.2 Globulin 3.5 Albumin/Globulin Ratio 0.9 L Assessment & Plan - Assessment and Plan (Free Text) Assessment: h/o Head and neck carcinoma He has progressed through multiple lines of chemotherapy including Keytruda. At this time, there are only limited options left. Will discuss with Dr. Daniel about future care but I agree with palliative care/ hospice placement if patient agrees. Will start him on IV Venofer 100 mg daily. Monitor for any bleeding. Continue current pain control and symptomatic management. His sodium is improving now. Appreciate nephrology recs. Dr. Daniel to discuss goals of care with family. Thank you for the consult Patric Ge - Date & Time Date: 01/02/17 Time: 12:27
[2017-01-02 19:14] LABS: OSMOLALITY,URINE 707 mosm/kg (50-645)
[2017-01-03] MEDS: Acetylcysteine 20% Inhal Soln (4ml) IH SCH ×4 (01:47→19:57)
[2017-01-03] MEDS: Albuterol-Ipratrop 3 mg / 0.5 (3 ml) UD IH SCH ×4 (01:47→19:57)
[2017-01-03] MEDS: Morphine 4 mg/ml ISec IVP PRN ×3 (04:33→10:47)
[2017-01-03 07:38] LABS: BASO # 0.01 K/mm3 (0.0-2.0); BASO % 0.1 % (0.0-3.0); EOS % 0.3 % (1.5-5.0); GRAN # 8.76 (1.4-6.5); GRAN % 87.6 % (50.0-68.0); LYMPH # 0.5 (1.2-3.4); LYMPH % 4.8 % (22.0-35.0); MEAN CELL VOLUME 91.8 fL (80.0-105.0); MEAN CORPUSCULAR HEMOGLOBIN 30.7 pg (25.0-35.0); MEAN CORPUSCULAR HGB CONC 33.5 g/dl (31.0-37.0); MONO # 0.7 (0.1-0.6); MONO % 7.2 % (1.0-6.0); PLATELET COUNT 373 10^3/uL (120.0-450.0); RBC 2.93 10^6/uL (3.5-6.1); RED CELL DISTRIBUTION WIDTH 14.4 % (11.5-14.5)
[2017-01-03 08:00] LABS: ALB/GLOB RATIO 0.9 (1.1-1.8); ALBUMIN 3.2 g/dL (3.0-4.8); ALT/SGPT 26 U/L (7-56); AST/SGOT 37 U/L (15-59); BLOOD UREA NITROGEN 12 mg/dL (7-21); CALCIUM 9.2 mg/dL (8.4-10.5); GFR AFRICAN-AMERICAN > 60; GFR NON-AFRICAN AMERICAN > 60; MAGNESIUM 1.3 mg/dL (1.7-2.2)
[2017-01-03] MEDS: Sodium Chloride 0.9% 1,000 ML IV SCH (09:37)
[2017-01-03] MEDS ORDERED: Magnesium Sulfate 2 GM in Sodium Chloride 0.9% 100 ML IVPB ONE (10:40)
[2017-01-03] MEDS ORDERED: Tolvaptan 15 MG TAB PO ONE (10:44)
[2017-01-03] MEDS ORDERED: Morphine PCA 1 mg/ml (25ml) 25 ML IV PRN ×3 (11:25→12:07)
--- NOTE | 2017-01-03 11:40 | CP.PCM.PN ---
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 monitor serum na. d/c NS as has very high urine Na/osmol avoid Serum Na rise >6-8 meq/24 hours. Supplement Mag and K Further work up for as per primary team Thanks for allowing me to participate in care of your patient. Will follow patient with you. Please call if any Qs Dr Tha Gutiérrez Office: [phone] Reason for consult: hyponatremia HPI: Pt is a 56 y/o M with hx of neck cancer and now DNR/DNI, going towards mostly palliative care, consulted for hyponatremia. ROS:c/o left neck pain, and cough with phlegm, reported loss of extensive weight. gets feed via PEG tube. Denies chest pain, palpitation, leg swelling Denies blood or bubbles in urine Physical Examination: General Appearance: comfortable, in no acute respiratory distress, ill appearing , cachexic Vitals reviewed and noted as below Neck;left neck mass+ Lungs: normal respiratory rate/effort. Breath sounds bilateral decreased with rales Heart: Normal rate. s1s2 normal. No rub or gallop. Extremities: no edema. No varicose veins Neurological: Patient is awake but tired and oriented to person, place and time. No focal deficit. Strength bilateral appropriate and equal Abdomen: Abdomen is soft. Bowel sounds +. There is no abdominal tenderness, no guarding/rigidity or organomegaly. has feeding tube + : kidney or bladder not palpable Labs/imaging/EKG reviewed. Past medical history, past surgical history, family history, social history, allergy reviewed and noted as below famil hx: no hx of CKD, no contributory WORK UP TSAT 9% Ferriitn 991 Alb 3.4 Mag 1.5 Phos 3.7 UA: SG 1.015 Na 82 Urine osmol 294 Serum osmol 266 ABG": 7.38/66/39/69% Objective - Vital Signs/Intake and Output Vital Signs (last 24 hours): Temp Pulse Resp BP Pulse Ox 99.3 F 97 H 19 145/94 H 99 01/03/17 08:55 01/03/17 08:55 01/03/17 08:55 01/03/17 08:55 01/03/17 08:55 Intake and Output: 01/03/17 01/03/17 06:59 18:59 Intake Total 0 Output Total 450 Balance -450 - Medications Medications: Current Medications Acetaminophen (Tylenol 325mg Tab) 650 mg PO Q4H PRN PRN Reason: Fever >100.4 F Last Admin: 01/03/17 00:59 Dose: 650 mg Acetylcysteine (Acetylcysteine 20%) 4 ml IH [id number] [facility] Last Admin: 01/03/17 07:31 Dose: Not Given Albuterol/Ipratropium (Duoneb 3 Mg/0.5 Mg (3 Ml) Ud) 3 ml IH [id number] [facility] Last Admin: 01/03/17 07:31 Dose: Not Given Albuterol/Ipratropium (Duoneb 3 Mg/0.5 Mg (3 Ml) Ud) 3 ml IH Q2H PRN PRN Reason: Shortness of Breath Bisacodyl (Dulcolax) 10 mg RC DAILY PRN PRN Reason: Constipation Iron Sucrose 200 mg/ Sodium (Chloride) 110 mls @ 110 mls/hr IVPB DAILY [facility] Stop: 01/06/17 12:01 Last Admin: 01/03/17 09:36 Dose: 110 mls/hr Magnesium Sulfate 2 gm/ Sodium (Chloride) 104 mls @ 102 mls/hr IVPB ONCE ONE Stop: 01/03/17 11:41 Morphine Sulfate (Morphine Weapons Mechanic 1 Mg/Ml) 25 mls @ 0 mls/hr IV PRN PRN; Protocol ; Per Protocol PRN Reason: DELIVERY AND INSTALLATION SUBCONTRACTOR PER MD ORDER Magnesium Oxide (Mag-Ox) 400 mg PEG BID [facility] Pantoprazole Sodium (Protonix Inj) 40 mg IVP DAILY [facility] Last Admin: 01/03/17 09:37 Dose: 40 mg Potassium Chloride (Potassium Chloride Oral Soln) 20 meq PEG DAILY [facility] - Labs Labs: 01/03/17 07:15 01/03/17 07:15 PT 12.0 Seconds (9.9-11.8) H 12/28/16 20:00 INR 1.11 (0.93-1.08) H 12/28/16 20:00 APTT 26.7 Seconds (23.7-30.8) 12/28/16 20:00
[2017-01-03] MEDS: Magnesium Oxide 400 mg Tab UD PEG SCH ×2 (12:14→18:00)
[2017-01-03] MEDS: Potassium Chloride 20 mEq/15 ml LIQ UD PEG SCH (12:14)
[2017-01-03] MEDS: Morphine PCA 1 mg/ml (25ml) 25 ML IV PRN ×2 (14:01→21:48)
--- NOTE | 2017-01-03 16:30 | CP.PCM.PN ---
Addendum entered and electronically signed by Howie Randhawa DO 01/03/17 21:02: Patient was seen and examined with agriculture intern, agree with assessment and plan. We had an extended discussion with the patient about his prognosis, his latests decision of DNR/DNI, and after a long discussion patient agrees that he would like to have a hospice evaluation. Discuss with family at his bedside as well. Will speak with Francine Parampilare tomorrow about patient. Discussed with Dr. Gutiérrez, getting tolvaptan today and following sodium. Otherwise stable and comfortable now that he's on GROCERY CLERK CHECKING. Howie Randhawa D.O. PGY-2 Original Note: <KYE AGUILAR - Last Filed: 01/03/17 18:00> Subjective - Date & Time of Evaluation Date of Evaluation: 01/03/17 Time of Evaluation: 06:45 - Subjective Subjective: Kye Aguilar PGY-1 - [facility] 56 [facility] M who presented on 12/29/16 for neck pain, with a history of oropharyngeal CA. Patient seen and examined at bedside. Today is hospital day 6. No acute events overnight. Patient is complaining of severe left neck and jaw pain despite current pain management regimen. Patient denies CP, SOB, F/C. Objective - Vital Signs/Intake and Output Vital Signs (last 24 hours): Temp Pulse Resp BP Pulse Ox 99.3 F 97 H 19 145/94 H 99 01/03/17 08:55 01/03/17 08:55 01/03/17 08:55 01/03/17 08:55 01/03/17 08:55 Intake and Output: 01/03/17 01/03/17 06:59 18:59 Intake Total 0 Output Total 450 Balance -450 - Medications Medications: Current Medications Acetaminophen (Tylenol 325mg Tab) 650 mg PO Q4H PRN PRN Reason: Fever >100.4 F Last Admin: 01/03/17 00:59 Dose: 650 mg Acetylcysteine (Acetylcysteine 20%) 4 ml IH [id number] [facility] Last Admin: 01/03/17 13:19 Dose: Not Given Albuterol/Ipratropium (Duoneb 3 Mg/0.5 Mg (3 Ml) Ud) 3 ml IH [id number] [facility] Last Admin: 01/03/17 13:19 Dose: Not Given Albuterol/Ipratropium (Duoneb 3 Mg/0.5 Mg (3 Ml) Ud) 3 ml IH Q2H PRN PRN Reason: Shortness of Breath Bisacodyl (Dulcolax) 10 mg RC DAILY PRN PRN Reason: Constipation Iron Sucrose 200 mg/ Sodium (Chloride) 110 mls @ 110 mls/hr IVPB DAILY [facility] Stop: 01/06/17 12:01 Last Admin: 01/03/17 09:36 Dose: 110 mls/hr Morphine Sulfate (Morphine Advertisement Distributor 1 Mg/Ml) 25 mls @ 0 mls/hr IV PRN PRN; Protocol ; Per Protocol PRN Reason: GROCERY CLERK CHECKING PER MD ORDER Morphine Sulfate (Morphine Advertisement Distributor 1 Mg/Ml) 25 mls @ 2 mls/hr IV PRN PRN; 2 MG/HR PRN Reason: GROCERY CLERK CHECKING PER MD ORDER Last Admin: 01/03/17 14:01 Dose: 2 mls/hr Magnesium Oxide (Mag-Ox) 400 mg PEG BID [facility] Last Admin: 01/03/17 12:14 Dose: 400 mg Pantoprazole Sodium (Protonix Inj) 40 mg IVP DAILY [facility] Last Admin: 01/03/17 09:37 Dose: 40 mg Potassium Chloride (Potassium Chloride Oral Soln) 20 meq PEG DAILY [facility] Last Admin: 01/03/17 12:14 Dose: 20 meq - Labs Labs: 01/03/17 07:15 01/03/17 12:00 PT 12.0 Seconds (9.9-11.8) H 12/28/16 20:00 INR 1.11 (0.93-1.08) H 12/28/16 20:00 APTT 26.7 Seconds (23.7-30.8) 12/28/16 20:00 - Constitutional Appears: Non-toxic, Agitated, Cachectic - Head Exam Head Exam: ATRAUMATIC, NORMOCEPHALIC - Eye Exam Eye Exam: EOMI, Normal appearance Pupil Exam: PERRL Additional comments: Left eye ptotic, incomplete closure, inability to raise left brow - ENT Exam ENT Exam: Mucous Membranes Moist Additional comments: Muffled voice Asymmetric smile, left sided droop Normal sensation throughout - Neck Exam Neck Exam: Tenderness Additional comments: Large left sided mass extending to jaw - Respiratory Exam Respiratory Exam: Clear to Ausculation Bilateral. absent: Rales, Rhonchi, Wheezes - Cardiovascular Exam Cardiovascular Exam: REGULAR RHYTHM. absent: JVD, RRR, Rubs - GI/Abdominal Exam GI & Abdominal Exam: Soft. absent: Distended, Firm, Guarding, Rigid, Tenderness Additional comments: Cachechtic, PEG tube with bandaging in place (LUQ region) - Extremities Exam Extremities Exam: absent: Calf Tenderness, Tenderness Additional comments: Thin, cachectic - Back Exam Back Exam: NORMAL INSPECTION. absent: CVA tenderness (L), CVA tenderness (R) - Neurological Exam Neurological Exam: Alert, Awake. absent: CN II-XII Intact (CN II-V, -XII grossly intact. Left sided facial weakness.) Additional comments: Following commands - Skin Skin Exam: Dry, Intact, Normal Color Assessment and Plan - Assessment and Plan (Free Text) Assessment: This is a 56 yo AA M with a history of oropharyngeal CA who presented 6 days ago for neck pain and hemoptysis. He is currently being treated for anemia, hyponatremia, hypomagnesemia, and is receiving pain management. He is currently DNR/DNI but not comfort care/hospice as per palliative care. Plan: 1. Orophayngeal CA- End Stage - Pain was out of control on 3mg morphine Q3h, changed to morphine GROCERY CLERK CHECKING - Seen by oncology (Dr. Ge), appreciate all recommendations - Seen by palliative care who recommended hospice/palliative care, currently decided to be DNR/DNI. - Left sided facial weakness noted, start artificial tears, start taping left eyelid at night to protect cornea 2. Anemia - Improved initially after 2 units of PRBC on 12/29 when Hgb was 11.6 which is trending down again and today Hgb is 9.0 - Continue Venofer - Seen by Heme/Onc (Dr. Ge), appreciate all recs - Will continue to monitor 3. 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 Gutiérrez), appreciate all recs 4. Hypomagnesemia - Mag 1.3 today, down from 1.9 yesterday - Consult nephro (Dr. Gutiérrez), appreciate all recs, repleting. Will repeat tomorrow AM GI/DVT prophylaxis: Protonix, SCD Patient seen, reviewed, and discussed with PGY-2 Dr. Randhawa, and attending Dr. Galindo <Seymour Galindo - Last Filed: 01/18/17 10:07> Objective - Vital Signs/Intake and Output Vital Signs (last 24 hours): Temp Pulse Resp BP Pulse Ox 98.6 F 96 H 18 142/96 H 92 L 01/04/17 16:00 01/04/17 16:00 01/04/17 16:00 01/04/17 16:00 01/04/17 16:00 - Labs Labs: 01/04/17 06:25 01/04/17 22:04 PT 12.0 Seconds (9.9-11.8) H 12/28/16 20:00 INR 1.11 (0.93-1.08) H 12/28/16 20:00 APTT 26.7 Seconds (23.7-30.8) 12/28/16 20:00 Attending/Attestation - Attestation I have personally seen and examined this patient.: Yes I have fully participated in the care of the patient.: Yes I have reviewed all pertinent clinical information, including history, physical exam and plan: Yes Notes (Text): 01/18/17 10:07 Medical record note made by resident after discussion with my direction and input after the patient personally seen and examined by me. I have reviewed the chart and agree that the note represents my personal history, physical, data review and plan.
[2017-01-03] MEDS: Aritificial Tears (15ml) OU SCH (18:22)
[2017-01-04] MEDS: Albuterol-Ipratrop 3 mg / 0.5 (3 ml) UD IH SCH ×4 (01:30→19:59)
[2017-01-04] MEDS: Acetylcysteine 20% Inhal Soln (4ml) IH SCH ×3 (01:30→19:59)
[2017-01-04] MEDS: Aritificial Tears (15ml) OU SCH ×3 (03:00→17:22)
[2017-01-04 06:36] LABS: BASO # 0.02 K/mm3 (0.0-2.0); BASO % 0.2 % (0.0-3.0); EOS % 0.1 % (1.5-5.0); GRAN # 10.84 (1.4-6.5); GRAN % 88.9 % (50.0-68.0); HEMOGLOBIN 9.6 gm/dL (14.0-18.0); LYMPH # 0.5 (1.2-3.4); LYMPH % 4.2 % (22.0-35.0); MEAN CELL VOLUME 92.6 fL (80.0-105.0); MEAN CORPUSCULAR HEMOGLOBIN 30.9 pg (25.0-35.0); MEAN CORPUSCULAR HGB CONC 33.3 g/dl (31.0-37.0); MEAN PLATELET VOLUME 8.9 fl (7.0-11.0); MONO # 0.8 (0.1-0.6); MONO % 6.6 % (1.0-6.0); PLATELET COUNT 361 10^3/uL (120.0-450.0); RBC 3.11 10^6/uL (3.5-6.1); RED CELL DISTRIBUTION WIDTH 14.7 % (11.5-14.5); WHITE BLOOD COUNT 12.2 10^3/ul (4.5-11.0)
[2017-01-04 06:47] LABS: ALBUMIN 3.6 g/dL (3.0-4.8); ALT/SGPT 35 U/L (7-56); AST/SGOT 42 U/L (15-59); BLOOD UREA NITROGEN 17 mg/dL (7-21); CALCIUM 9.8 mg/dL (8.4-10.5); GFR AFRICAN-AMERICAN > 60; GFR NON-AFRICAN AMERICAN > 60; MAGNESIUM 1.6 mg/dL (1.7-2.2)
[2017-01-04] MEDS ORDERED: Tolvaptan 15 MG TAB PO ONE (09:16)
[2017-01-04] MEDS ORDERED: Magnesium Sulfate 2 GM in Sodium Chloride 0.9% 100 ML IVPB ONE (09:16)
[2017-01-04] MEDS: Morphine PCA 1 mg/ml (25ml) 25 ML IV PRN ×2 (09:35→20:17)
[2017-01-04] MEDS: Magnesium Oxide 400 mg Tab UD PEG SCH ×2 (09:39→17:22)
[2017-01-04] MEDS: Potassium Chloride 20 mEq/15 ml LIQ UD PEG SCH (09:39)
--- NOTE | 2017-01-04 10:04 | CP.PCM.PN ---
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 monitor serum na. d/c NS as has very high urine Na/osmol avoid Serum Na rise >6-8 meq/24 hours. Supplement Mag and K Further work up for as per primary team Thanks for allowing me to participate in care of your patient. Will follow patient with you. Please call if any Qs Dr Tha Gutiérrez Office: [phone] Reason for consult: hyponatremia HPI: Pt is a 56 y/o M with hx of neck cancer and now DNR/DNI, going towards mostly palliative care, consulted for hyponatremia. ROS: not much communicative gets feed via PEG tube. Physical Examination: General Appearance: comfortable, in no acute respiratory distress, ill appearing , cachexic Vitals reviewed and noted as below Neck;left neck mass+ Lungs: normal respiratory rate/effort. Breath sounds bilateral decreased with rales Heart: Normal rate. s1s2 normal. No rub or gallop. Extremities: no edema. No varicose veins Neurological: Patient is awake but tired Abdomen: Abdomen is soft. Bowel sounds +. There is no abdominal tenderness, no guarding/rigidity or organomegaly. has feeding tube + : kidney or bladder not palpable Labs/imaging/EKG reviewed. Past medical history, past surgical history, family history, social history, allergy reviewed and noted as below famil hx: no hx of CKD, no contributory WORK UP TSAT 9% Ferriitn 991 Alb 3.4 Mag 1.5 Phos 3.7 UA: SG 1.015 Na 82 Urine osmol 294 Serum osmol 266 ABG": 7.38/66/39/69% Objective - Vital Signs/Intake and Output Vital Signs (last 24 hours): Temp Pulse Resp BP Pulse Ox 98.2 F 106 H 21 154/86 H 96 01/03/17 16:00 01/04/17 06:00 01/04/17 06:00 01/04/17 06:00 01/04/17 06:00 Intake and Output: 01/04/17 01/04/17 06:59 18:59 Intake Total 574 Output Total 800 Balance -226 - Medications Medications: Current Medications Acetaminophen (Tylenol 325mg Tab) 650 mg PO Q4H PRN PRN Reason: Fever >100.4 F Last Admin: 01/03/17 00:59 Dose: 650 mg Acetylcysteine (Acetylcysteine 20%) 4 ml IH [id number] [facility] Last Admin: 01/04/17 08:01 Dose: Not Given Albuterol/Ipratropium (Duoneb 3 Mg/0.5 Mg (3 Ml) Ud) 3 ml IH [id number] [facility] Last Admin: 01/04/17 08:01 Dose: Not Given Albuterol/Ipratropium (Duoneb 3 Mg/0.5 Mg (3 Ml) Ud) 3 ml IH Q2H PRN PRN Reason: Shortness of Breath Artificial Tears (Artificial Tears) 0 ml OU Q8H [facility] Last Admin: 01/04/17 09:40 Dose: 2 drop Bisacodyl (Dulcolax) 10 mg RC DAILY PRN PRN Reason: Constipation Iron Sucrose 200 mg/ Sodium (Chloride) 110 mls @ 110 mls/hr IVPB DAILY [facility] Stop: 01/06/17 12:01 Last Admin: 01/04/17 09:39 Dose: 110 mls/hr Morphine Sulfate (Morphine Auger Supervisor 1 Mg/Ml) 25 mls @ 0 mls/hr IV PRN PRN; Protocol ; Per Protocol PRN Reason: COMMODITIES TRADER PER MD ORDER Morphine Sulfate (Morphine Auger Supervisor 1 Mg/Ml) 25 mls @ 2 mls/hr IV PRN PRN; 2 MG/HR PRN Reason: COMMODITIES TRADER PER MD ORDER Last Admin: 01/04/17 09:35 Dose: 2 mls/hr Magnesium Sulfate 2 gm/ Sodium (Chloride) 104 mls @ 102 mls/hr IVPB ONCE ONE Stop: 01/04/17 10:17 Last Admin: 01/04/17 09:39 Dose: 102 mls/hr Magnesium Oxide (Mag-Ox) 400 mg PEG BID [facility] Last Admin: 01/04/17 09:39 Dose: 400 mg Pantoprazole Sodium (Protonix Inj) 40 mg IVP DAILY [facility] Last Admin: 01/04/17 09:39 Dose: 40 mg Potassium Chloride (Potassium Chloride Oral Soln) 20 meq PEG DAILY [facility] Last Admin: 01/04/17 09:39 Dose: 20 meq - Labs Labs: 01/04/17 06:25 01/04/17 06:25 PT 12.0 Seconds (9.9-11.8) H 12/28/16 20:00 INR 1.11 (0.93-1.08) H 12/28/16 20:00 APTT 26.7 Seconds (23.7-30.8) 12/28/16 20:00
[2017-01-04 16:14] VITALS: BP 142/96; PULSE 96; RESP 18; TEMP 98.6; O2SAT 92
--- NOTE | 2017-01-04 17:15 | CP.PCM.PN ---
<SAUL AGUILAR - Last Filed: 01/04/17 17:12> Subjective - Date & Time of Evaluation Date of Evaluation: 01/04/17 Time of Evaluation: 06:45 - Subjective Subjective: Saul Aguilar D.O. PGY1 - Internal Medicine - [facility] 56 yo M who presented on 12/29/16 for neck pain, with a history of oropharyngeal CA. Patient seen and examined at bedside. Today is hospital day 7. No acute events overnight. 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 Patient denies CP, SOB, F/C. Objective - Vital Signs/Intake and Output Vital Signs (last 24 hours): Temp Pulse Resp BP Pulse Ox 98.6 F 96 H 18 142/96 H 92 L 01/04/17 16:00 01/04/17 16:00 01/04/17 16:00 01/04/17 16:00 01/04/17 16:00 Intake and Output: 01/04/17 01/04/17 06:59 18:59 Intake Total 574 Output Total 800 Balance -226 - Medications Medications: Current Medications Acetaminophen (Tylenol 325mg Tab) 650 mg PO Q4H PRN PRN Reason: Fever >100.4 F Last Admin: 01/03/17 00:59 Dose: 650 mg Acetylcysteine (Acetylcysteine 20%) 4 ml IH [id number] [facility] Last Admin: 01/04/17 08:01 Dose: Not Given Albuterol/Ipratropium (Duoneb 3 Mg/0.5 Mg (3 Ml) Ud) 3 ml IH [id number] [facility] Last Admin: 01/04/17 13:20 Dose: Not Given Albuterol/Ipratropium (Duoneb 3 Mg/0.5 Mg (3 Ml) Ud) 3 ml IH Q2H PRN PRN Reason: Shortness of Breath Artificial Tears (Artificial Tears) 0 ml OU Q8H [facility] Last Admin: 01/04/17 09:40 Dose: 2 drop Bisacodyl (Dulcolax) 10 mg RC DAILY PRN PRN Reason: Constipation Iron Sucrose 200 mg/ Sodium (Chloride) 110 mls @ 110 mls/hr IVPB DAILY [facility] Stop: 01/06/17 12:01 Last Admin: 01/04/17 09:39 Dose: 110 mls/hr Morphine Sulfate (Morphine Tool Design Checker 1 Mg/Ml) 25 mls @ 2 mls/hr IV PRN PRN; 2 MG/HR PRN Reason: 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 FRAME OPERATOR PER MD ORDER Last Admin: 01/04/17 09:35 Dose: 2 mls/hr Magnesium Oxide (Mag-Ox) 400 mg PEG BID [facility] Last Admin: 01/04/17 09:39 Dose: 400 mg Pantoprazole Sodium (Protonix Inj) 40 mg IVP DAILY [facility] Last Admin: 01/04/17 09:39 Dose: 40 mg Potassium Chloride (Potassium Chloride Oral Soln) 20 meq PEG DAILY [facility] Last Admin: 01/04/17 09:39 Dose: 20 meq - Labs Labs: 01/04/17 06:25 01/04/17 14:26 PT 12.0 Seconds (9.9-11.8) H 12/28/16 20:00 INR 1.11 (0.93-1.08) H 12/28/16 20:00 APTT 26.7 Seconds (23.7-30.8) 12/28/16 20:00 - Constitutional Appears: Well, Cachectic, Chronically Ill - Head Exam Head Exam: ATRAUMATIC, NORMOCEPHALIC - Eye Exam Eye Exam: EOMI, PERRL Additional comments: Left eye ptotic, incomplete closure, inability to raise left brow - ENT Exam ENT Exam: Mucous Membranes Moist Additional comments: Muffled voice Asymmetric smile, left sided droop Normal sensation throughout - Neck Exam Neck Exam: Tenderness Additional comments: Large left sided mass extending to jaw - Respiratory Exam Respiratory Exam: Clear to Ausculation Bilateral. absent: Rales, Rhonchi, Wheezes - Cardiovascular Exam Cardiovascular Exam: RRR, +S1, +S2 - GI/Abdominal Exam GI & Abdominal Exam: Normal Bowel Sounds. absent: Tenderness Additional comments: Cachechtic, PEG tube with bandaging in place (LUQ region) - Extremities Exam Extremities Exam: Full ROM. absent: Calf Tenderness - Back Exam Back Exam: absent: CVA tenderness (L), CVA tenderness (R) - Neurological Exam Neurological Exam: Alert, Awake, Oriented x3 - Psychiatric Exam Psychiatric exam: Normal Affect, Normal Mood - Skin Skin Exam: Dry, Intact Assessment and Plan - Assessment and Plan (Free Text) Assessment: This is a 56 yo AA M with a history of oropharyngeal CA who presented 6 days ago for neck pain and hemoptysis. He is currently being treated for anemia, hyponatremia, hypomagnesemia, and is receiving pain management. He is currently DNR/DNI, and has agreed to comfort care/hospice, pending palliative care evaluation. Plan: 1. 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 Ge), appreciate all recommendations - Seen by palliative care who recommended hospice/palliative care, previously decided to be DNR/DNI, now agreeing to hospice, pending evaluation and placement , consider discharge tomorrow if placement can be arranged; will speak to Francine Rosales in this regard. - Left sided facial weakness noted, continue artificial tears, continue taping left eyelid at night to protect cornea 2. Anemia - improving - Improved initially after 2 units of PRBC on 12/29, Hgb today is 9.6 - Continue Venofer - Seen by Heme/Onc (Dr. Ge), appreciate all recs - Will continue to monitor 3. 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 Gutiérrez), appreciate all recs 4. Hypomagnesemia - Mag 1.6 today, up from 1.3 yesterday - Consult nephro (Dr. Gutiérrez), appreciate all recs, repleting. Will repeat tomorrow AM GI/DVT prophylaxis: Protonix, SCD Patient seen, reviewed, and discussed with attending Dr. Rob <[place] Rob - Last Filed: 01/05/17 15:32> Objective - Vital Signs/Intake and Output Vital Signs (last 24 hours): Temp Pulse Resp BP Pulse Ox 98.6 F 96 H 18 142/96 H 92 L 01/04/17 16:00 01/04/17 16:00 01/04/17 16:00 01/04/17 16:00 01/04/17 16:00 Intake and Output: 01/05/17 01/05/17 06:59 18:59 Intake Total 0 Output Total 200 Balance -200 - Labs Labs: 01/04/17 06:25 01/04/17 22:04 PT 12.0 Seconds (9.9-11.8) H 12/28/16 20:00 INR 1.11 (0.93-1.08) H 12/28/16 20:00 APTT 26.7 Seconds (23.7-30.8) 12/28/16 20:00 Attending/Attestation - Attestation I have personally seen and examined this patient.: Yes I have fully participated in the care of the patient.: Yes I have reviewed all pertinent clinical information, including history, physical exam and plan: Yes Notes (Text): 01/05/17 15:32 Medical record note made by the resident after discussion with my direction and input after the patient was personally seen and examined by me. I have reviewed the chart and agree that the record accurately reflects by personal performance of the history, physical exam, data review, and medical decision-making, in the course for the patient. I have also personally directed the plan of care.
[2017-01-05] MEDS: Albuterol-Ipratrop 3 mg / 0.5 (3 ml) UD IH SCH (01:13)
[2017-01-05] MEDS: Acetylcysteine 20% Inhal Soln (4ml) IH SCH (01:13)
--- NOTE | 2017-01-05 04:00 | CP.PCM.PRO ---
Pronouncement of Note - Clinical Findings Physical Exam: Absent Peripheral Pulses{Carotid & Femoral}, Absent Heart & Breath Sounds, No Pupillary Light Reflex, Pupils Fixed & Dilated - Pronouncement Time Time of Pronouncement of : 03:31 - Notifications Pronouncement Notifications: Family Notified, Atending Notified Dryerman/Woman Notified: No - Autopsy Autopsy Requested: No - [place]: [id number] Additional Comments: Attending physician notified at 3:35 a.m. EDRS certificate started, will be completed by primary physician.
--- NOTE | 2017-01-05 15:23 | CP.PCM.DIS ---
<Howie Randhawa - Last Filed: 01/05/17 15:18> Provider - Provider Date of Admission: 12/29/16 00:04 Attending physician: Seymour aGlindo MD Consults: Heme/onc Dr. Villarreal ENT Dr. Liana Swan Nephro Dr. Gutiérrez [facility] [employer] Time Spent in preparation of Discharge (in minutes): 50 Diagnosis - Discharge Diagnosis (1) Neck malignant neoplasm Status: Acute (2) Status: Acute (3) Anemia Status: Acute Hospital Course - Lab Results Lab Results: Micro Results 01/04/17 00:55 Abdomen Gram Stain - Final 01/04/17 00:55 Abdomen Wound Culture - Preliminary Gram Negative Miguel A Gram Positive Cocci Most Recent Lab Values WBC 12.2 10^3/ul (4.5-11.0) H D 01/04/17 06:25 RBC 3.11 10^6/uL (3.5-6.1) L 01/04/17 06:25 Hgb 9.6 gm/dL (14.0-18.0) L 01/04/17 06:25 Hct 28.8 % (42.0-52.0) L 01/04/17 06:25 MCV 92.6 fL (80.0-105.0) 01/04/17 06:25 MCH 30.9 pg (25.0-35.0) 01/04/17 06:25 MCHC 33.3 g/dl (31.0-37.0) 01/04/17 06:25 RDW 14.7 % (11.5-14.5) H 01/04/17 06:25 Plt Count 361 10^3/uL (120.0-450.0) 01/04/17 06:25 MPV 8.9 fl (7.0-11.0) 01/04/17 06:25 Gran % 88.9 % (50.0-68.0) H 01/04/17 06:25 Lymph % (Auto) 4.2 % (22.0-35.0) L 01/04/17 06:25 Casey % (Auto) 6.6 % (1.0-6.0) H 01/04/17 06:25 Eos % (Auto) 0.1 % (1.5-5.0) L 01/04/17 06:25 Baso % (Auto) 0.2 % (0.0-3.0) 01/04/17 06:25 Gran # 10.84 (1.4-6.5) H 01/04/17 06:25 Lymph # 0.5 (1.2-3.4) L 01/04/17 06:25 Casey # 0.8 (0.1-0.6) H 01/04/17 06:25 Eos # 0.0 (0.0-0.7) 01/04/17 06:25 Baso # 0.02 K/mm3 (0.0-2.0) 01/04/17 06: Retic Count 1.58 % (0.5-1.5) H 12/28/16 20:00 PT 12.0 Seconds (9.9-11.8) H 12/28/16 20:00 INR 1.11 (0.93-1.08) H 12/28/16 20:00 APTT 26.7 Seconds (23.7-30.8) 12/28/16 20:00 pO2 34 mm/Hg (30-55) 12/28/16 20:00 VBG pH 7.38 (7.32-7.43) 12/28/16 20:00 VBG pCO2 66.0 (40-60) H* 12/28/16 20:00 VBG HCO3 39.0 mmol/l (21-28) H 12/28/16 20:00 VBG Total CO2 41.0 mmol.L (22-28) H 12/28/16 20:00 VBG O2 Sat (Calc) 68.5 % (40-65) H 12/28/16 20:00 VBG Base Excess 11.1 mmol/L (0.0-2.0) H 12/28/16 20:00 VBG Potassium 4.3 mmol/L (3.6-5.2) 12/28/16 20:00 Sodium 126.0 mmol/L (132-148) L 12/28/16 20:00 Chloride 89.0 mmol/L (98-107) L 12/28/16 20:00 Glucose 91 mg/dl (75-110) 12/28/16 20:00 Lactate 0.9 mmol/L (0.7-2.1) 12/28/16 20:00 FiO2 21.0 % 12/28/16 20:00 Sodium 131 mmol/L (132-148) L 01/04/17 22:04 Potassium 4.1 mmol/L (3.6-5.0) 01/04/17 06:25 Chloride 87 mmol/L (95-110) L 01/04/17 06:25 Carbon Dioxide 36 mmol/L (21-33) H 01/04/17 06:25 Anion Gap 11 (10-20) 01/04/17 06:25 BUN 17 mg/dL (7-21) 01/04/17 06:25 Creatinine 0.5 mg/dL (0.5-1.4) 01/04/17 06:25 Est GFR ( Amer) > 60 01/04/17 06:25 Est GFR (Non-Af Amer) > 60 01/04/17 06:25 Random Glucose 123 mg/dL (70-110) H 01/04/17 06:25 Serum Osmolality 266 mosm/kg (271-296) L 12/28/16 20:00 Calcium 9.8 mg/dL (8.4-10.5) 01/04/17 06:25 Phosphorus 3.8 mg/dL (2.5-4.5) 01/04/17 06:25 Magnesium 1.6 mg/dL (1.7-2.2) L 01/04/17 06:25 Iron 15 ug/dL (45-180) L 12/28/16 20:00 TIBC 171 ug/dL (261-462) L 12/28/16 20:00 % Saturation 9 % (20-55) L 12/28/16 20:00 Ferritin 991.0 ng/mL 12/28/16 20:00 Total Bilirubin 0.4 mg/dL (0.2-1.3) 01/04/17 06:25 AST 42 U/L (15-59) 01/04/17 06:25 ALT 35 U/L (7-56) 01/04/17 06:25 Alkaline Phosphatase 100 U/L (38-133) 01/04/17 06:25 Total Protein 7.4 g/dL (5.8-8.3) 01/04/17 06:25 Albumin 3.6 g/dL (3.0-4.8) 01/04/17 06:25 Globulin 3.8 gm/dL 01/04/17 06:25 Albumin/Globulin Ratio 1.0 (1.1-1.8) L 01/04/17 06:25 Vitamin B12 983 pg/mL (239-931) H 12/28/16 20:00 Folate > 20.0 ng/mL 12/28/16 20:00 Venous Blood Potassium 4.3 mmol/L (3.6-5.2) 12/28/16 20:00 Urine Color Yellow (YELLOW) 12/28/16 20:36 Urine Appearance Clear (CLEAR) 12/28/16 20:36 Urine pH 8.0 (4.7-8.0) 12/28/16 20:36 Ur Specific [place] 1.015 (1.005-1.035) 12/28/16 20:36 Urine Protein Negative mg/dL (<30 mg/dL) 12/28/16 20:36 Urine Glucose (UA) Negative mg/dL (NEGATIVE) 12/28/16 20:36 Urine Ketones Negative mg/dL (NEGATIVE) 12/28/16 20:36 Urine Blood Negative (NEGATIVE) 12/28/16 20:36 Urine Nitrate Negative (NEGATIVE) 12/28/16 20:36 Urine Bilirubin Negative (NEGATIVE) 12/28/16 20:36 Urine Urobilinogen 4.0 E.U./dL (<1 E.U./dL) H 12/28/16 20:36 Ur Leukocyte Esterase Negative [place]/uL (NEGATIVE) 12/28/16 20:36 Urine Osmolality 707 mosm/kg (50-645) H 01/02/17 17:42 Ur Random Creatinine 28 mg/dL 12/29/16 01:20 Ur Random Sodium 134 meq/L 01/02/17 17:42 Urine Chloride 67 mmol/L (32-290) 12/29/16 01:20 Blood Type O POSITIVE 12/28/16 21:00 Blood Type Confirm O POSITIVE 12/28/16 21:40 Antibody Screen Negative 12/28/16 21:00 Crossmatch See Detail 12/28/16 21:00 BBK History Checked No verified bt 12/28/16 21:00 - Hospital Course Hospital Course: 56 year old male with past medical history of oropharyngeal cancer that presented with complaints of neck pain. Patient had been diagnosed with cancer 2 years prior and had been undergoing chemotherapy. Patient was seen by Hem/onc who determined that the patient had metastatic disease and had failed all treatment. Patient was seen by palliative care and signed a DNR but wanted to consider hospice. 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 Patient also was found to have worsening hyponatremia during the admission so nephrology was consulted and he was on hypertonic saline. We had multiple discussion with the patient and the family and the decision was made to consult Hospice care for an evaluation. Patient continued to be comfortable on WRITING TUTOR without any acute issues. Patient however was declared on 01/05/17 at 0331. - Date & Time of H&P Date of H&P: 01/05/17 Time of H&P: 08:00 Discharge Exam - Head Exam Head Exam: ATRAUMATIC, NORMOCEPHALIC - Eye Exam Pupil Exam: absent: PERRL - Neck Exam Additional comments: large left side mass - Respiratory Exam Respiratory Exam: absent: Respiratory Distress - Cardiovascular Exam Cardiovascular Exam: absent: RRR - GI/Abdominal Exam GI & Abdominal Exam: absent: Normal Bowel Sounds Additional comments: PEG tube in place - Neurological Exam Additional comments: unresponsive Discharge Plan - Follow Up Plan Condition: STABLE Disposition: WITH WITHOUT AUTOPSY <[place] Rob - Last Filed: 01/24/17 13:11> Provider - Provider Date of Admission: 12/29/16 00:04 Attending physician: Seymour Galindo MD Hospital Course - Lab Results Lab Results: Micro Results 01/04/17 00:55 Abdomen Gram Stain - Final 01/04/17 00:55 Abdomen Wound Culture - Final Klebsiella Pneumoniae Ssp Pneu Staphylococcus Epidermidis Most Recent Lab Values WBC 12.2 10^3/ul (4.5-11.0) H D 01/04/17 06:25 RBC 3.11 10^6/uL (3.5-6.1) L 01/04/17 06:25 Hgb 9.6 gm/dL (14.0-18.0) L 01/04/17 06:25 Hct 28.8 % (42.0-52.0) L 01/04/17 06:25 MCV 92.6 fL (80.0-105.0) 01/04/17 06:25 MCH 30.9 pg (25.0-35.0) 01/04/17 06:25 MCHC 33.3 g/dl (31.0-37.0) 01/04/17 06:25 RDW 14.7 % (11.5-14.5) H 01/04/17 06:25 Plt Count 361 10^3/uL (120.0-450.0) 01/04/17 06:25 MPV 8.9 fl (7.0-11.0) 01/04/17 06:25 Gran % 88.9 % (50.0-68.0) H 01/04/17 06:25 Lymph % (Auto) 4.2 % (22.0-35.0) L 01/04/17 06:25 Casey % (Auto) 6.6 % (1.0-6.0) H 01/04/17 06:25 Eos % (Auto) 0.1 % (1.5-5.0) L 01/04/17 06:25 Baso % (Auto) 0.2 % (0.0-3.0) 01/04/17 06:25 Gran # 10.84 (1.4-6.5) H 01/04/17 06:25 Lymph # 0.5 (1.2-3.4) L 01/04/17 06:25 Casey # 0.8 (0.1-0.6) H 01/04/17 06:25 Eos # 0.0 (0.0-0.7) 01/04/17 06:25 Baso # 0.02 K/mm3 (0.0-2.0) 01/04/17 06:25 Retic Count 1.58 % (0.5-1.5) H 12/28/16 20:00 PT 12.0 Seconds (9.9-11.8) H 12/28/16 20:00 INR 1.11 (0.93-1.08) H 12/28/16 20:00 APTT 26.7 Seconds (23.7-30.8) 12/28/16 20:00 pO2 34 mm/Hg (30-55) 12/28/16 20:00 VBG pH 7.38 (7.32-7.43) 12/28/16 20:00 VBG pCO2 66.0 (40-60) H* 12/28/16 20:00 VBG HCO3 39.0 mmol/l (21-28) H 12/28/16 20:00 VBG Total CO2 41.0 mmol.L (22-28) H 12/28/16 20:00 VBG O2 Sat (Calc) 68.5 % (40-65) H 12/28/16 20:00 VBG Base Excess 11.1 mmol/L (0.0-2.0) H 12/28/16 20:00 VBG Potassium 4.3 mmol/L (3.6-5.2) 12/28/16 20:00 Sodium 126.0 mmol/L (132-148) L 12/28/16 20:00 Chloride 89.0 mmol/L (98-107) L 12/28/16 20:00 Glucose 91 mg/dl (75-110) 12/28/16 20:00 Lactate 0.9 mmol/L (0.7-2.1) 12/28/16 20:00 FiO2 21.0 % 12/28/16 20:00 Sodium 131 mmol/L (132-148) L 01/04/17 22:04 Potassium 4.1 mmol/L (3.6-5.0) 01/04/17 06:25 Chloride 87 mmol/L (95-110) L 01/04/17 06:25 Carbon Dioxide 36 mmol/L (21-33) H 01/04/17 06:25 Anion Gap 11 (10-20) 01/04/17 06:25 BUN 17 mg/dL (7-21) 01/04/17 06:25 Creatinine 0.5 mg/dL (0.5-1.4) 01/04/17 06:25 Est GFR ( Amer) > 60 01/04/17 06:25 Est GFR (Non-Af Amer) > 60 01/04/17 06:25 Random Glucose 123 mg/dL (70-110) H 01/04/17 06:25 Serum Osmolality 266 mosm/kg (271-296) L 12/28/16 20:00 Calcium 9.8 mg/dL (8.4-10.5) 01/04/17 06:25 Phosphorus 3.8 mg/dL (2.5-4.5) 01/04/17 06:25 Magnesium 1.6 mg/dL (1.7-2.2) L 01/04/17 06:25 Iron 15 ug/dL (45-180) L 12/28/16 20:00 TIBC 171 ug/dL (261-462) L 12/28/16 20:00 % Saturation 9 % (20-55) L 12/28/16 20:00 Ferritin 991.0 ng/mL 12/28/16 20:00 Total Bilirubin 0.4 mg/dL (0.2-1.3) 01/04/17 06:25 AST 42 U/L (15-59) 01/04/17 06:25 ALT 35 U/L (7-56) 01/04/17 06:25 Alkaline Phosphatase 100 U/L (38-133) 01/04/17 06:25 Total Protein 7.4 g/dL (5.8-8.3) 01/04/17 06:25 Albumin 3.6 g/dL (3.0-4.8) 01/04/17 06:25 Globulin 3.8 gm/dL 01/04/17 06:25 Albumin/Globulin Ratio 1.0 (1.1-1.8) L 01/04/17 06:25 Vitamin B12 983 pg/mL (239-931) H 12/28/16 20:00 Folate > 20.0 ng/mL 12/28/16 20:00 Venous Blood Potassium 4.3 mmol/L (3.6-5.2) 12/28/16 20:00 Urine Color Yellow (YELLOW) 12/28/16 20:36 Urine Appearance Clear (CLEAR) 12/28/16 20:36 Urine pH 8.0 (4.7-8.0) 12/28/16 20:36 Ur Specific [place] 1.015 (1.005-1.035) 12/28/16 20:36 Urine Protein Negative mg/dL (<30 mg/dL) 12/28/16 20:36 Urine Glucose (UA) Negative mg/dL (NEGATIVE) 12/28/16 20:36 Urine Ketones Negative mg/dL (NEGATIVE) 12/28/16 20:36 Urine Blood Negative (NEGATIVE) 12/28/16 20:36 Urine Nitrate Negative (NEGATIVE) 12/28/16 20:36 Urine Bilirubin Negative (NEGATIVE) 12/28/16 20:36 Urine Urobilinogen 4.0 E.U./dL (<1 E.U./dL) H 12/28/16 20:36 Ur Leukocyte Esterase Negative [place]/uL (NEGATIVE) 12/28/16 20:36 Urine Osmolality 707 mosm/kg (50-645) H 01/02/17 17:42 Ur Random Creatinine 28 mg/dL 12/29/16 01:20 Ur Random Sodium 134 meq/L 01/02/17 17:42 Urine Chloride 67 mmol/L (32-290) 12/29/16 01:20 Blood Type O POSITIVE 12/28/16 21:00 Blood Type Confirm O POSITIVE 12/28/16 21:40 Antibody Screen Negative 12/28/16 21:00 Crossmatch See Detail 12/28/16 21:00 BBK History Checked No verified bt 12/28/16 21:00 Attending/Attestation - Attestation I have personally seen and examined this patient.: Yes I have fully participated in the care of the patient.: Yes I have reviewed all pertinent clinical information, including history, physical exam and plan: Yes Notes (Text): 01/24/17 13:11 Medical record note made by the resident after discussion with my direction and input after the patient was personally seen and examined by me. I have reviewed the chart and agree that the record accurately reflects by personal performance of the history, physical exam, data review, and medical decision-making, in the course for the patient. I have also personally directed the plan of care.
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
== END 2017-01-05 03:31 | DRG 147 ==
LOC: ED 19:11 → ERH 12-29 00:04 → 2RNO 12-29 03:39 → 3RNO 12-30 17:48
PROVIDERS: ADMIT Internal Medicine; ATTEND Internal Medicine
DX: C10.9 Malignant neoplasm of oropharynx, unspecified (principal); E22.2 Syndrome of inappropriate secretion of antidiuretic hormone; E87.2 Acidosis; E83.42 Hypomagnesemia; G89.3 Neoplasm related pain (acute) (chronic); D64.9 Anemia, unspecified; Z66 Do not resuscitate; E87.6 Hypokalemia; Z92.21 Personal history of antineoplastic chemotherapy; Z87.891 Personal history of nicotine dependence